=== PATIENT | female | born 1950 | race Caucasian/White ===

== ENCOUNTER → 2016-11-06 | Outpatient (CLI) | payer OTHER ==
[~2016-11-06] MED LIST: ADVIN10/60 INH; ASPEC81 PO; ATOR10TA82 PO; CALC8.5C PO; CHOL100010 PO; HYDR12.55 PO; LISI40TA PO; MULT-506 PO; NXM/40 PO; WARF-246 PO
--- NOTE | 2016-11-06 16:39 | MAMMOGRAPHY REPORT ---
BILATERAL DIGITAL SCREENING MAMMOGRAM WITH CAD: 11/06/2016 CLINICAL HISTORY: Routine screening. Patient has no complaints. TECHNIQUE: Current study was also evaluated with a Computer Aided Detection (CAD) system. Bilatera l CC and MLO views were obtained. COMPARISON: Comparison is made to exams dated: 10/16/2015 mammogram, 10/03/2014 mammogram, 08/19/2013 mammogram, 08/17/2012 mammogram, 08/14/2011 mammogram, and 08/13/2010 mammogram - [facility]. BREAST COMPOSITION: There are scattered areas of fibroglandular density in both breasts. FINDINGS: There are possible increasing calcifications within the left upper outer quadrant, for whi ch spot magnification views are recommended for further evaluation. The remainder of both breasts are stable compared to prior exams, without suspicious masses, calcifi cations, or areas of architectural distortion noted. Bilateral asymmetries/benign-appearing masses are not significantly changed. IMPRESSION: ACR BI-RADS CATEGORY 0: INCOMPLETE EVALUATION: NEED ADDITIONAL IMAGING EVALUATION Left upper outer quadrant calcifications, for which additional imaging evaluation is recommended. T he patient will be called to schedule an appointment. Approximately 10% of breast cancers are not detected with mammography. A negative mammographic repor t should not delay biopsy if a clinically suggestive mass is present. Samantha Mc M.D. /:11/06/2016 16:27:54 University Dean: Ludy Viera RT(R)(M), [facility] letter sent: Addl Imaging 0 BI-RADS Code: ACR BI-RADS Category 0: Incomplete Evaluation: Need Additional Imaging Evaluation
== END | disposition home or self-care (01) ==
LOC: C.MAMM 09:31
PROVIDERS: ATTEND Obstetrics & Gynecology
DX: Z12.31 Encounter for screening mammogram for malignant neoplasm of breast (principal); R92.1 Mammographic calcification found on diagnostic imaging of breast

== ENCOUNTER → 2016-11-18 | Outpatient (CLI) | payer OTHER ==
--- NOTE | 2016-11-21 08:07 | MAMMOGRAPHY REPORT ---
UNILATERAL LEFT DIGITAL DIAGNOSTIC MAMMOGRAM: 11/18/2016 CLINICAL HISTORY: 65-year-old woman called back from screening mammography for clustered microcalcif ications in the left upper outer quadrant. TECHNIQUE: Spot magnification left CC and ML views were obtained. COMPARISON: Comparison is made to exams dated: 11/06/2016 mammogram, 10/16/2015 mammogram, 10/03/2014 mammogram, 08/19/2013 mammogram, 05/18/2013 ultrasound, and 05/18/2013 mammogram - [facility]. BREAST COMPOSITION: There are scattered areas of fibroglandular density in the left breast. FINDINGS: There is an 11 mm cluster of pleomorphic microcalcifications in the upper outer middle on e third of the left breast. These appear increased compared to prior available mammograms and are t herefore indeterminate. Definitive characterization with a stereotactic guided biopsy is recommende d. There are mild vascular calcifications in the visualized left breast. A previously observed mas s in the left upper outer middle one third of the breast has decreased comparing to the 2008 mammogr ams. IMPRESSION: ACR BI-RADS CATEGORY 4B: INTERMEDIATE SUSPICION FOR MALIGNANCY 1. Left breast stereotactic guided biopsy is recommended for an 11 mm cluster of pleomorphic microc alcifications in the upper outer quadrant of the left breast. These results and recommendations were discussed with the patient at the time of the exam. She tent atively scheduled the biopsy prior to leaving our department. Approximately 10% of breast cancers are not detected with mammography. A negative mammographic repor t should not delay biopsy if a clinically suggestive mass is present. Amanda Batista M.D. ay/:11/18/2016 12:18:41 Feather Boner: Karissa MATTHEWS(Joyce)(Ángel), [facility] letter sent: Abnormal 4/5 BI-RADS Code: ACR BI-RADS Category 4B: Intermediate Suspicion For Malignancy
== END | disposition home or self-care (01) ==
LOC: C.MAMM 09:49
PROVIDERS: ATTEND Obstetrics & Gynecology
DX: R92.0 Mammographic microcalcification found on diagnostic imaging of breast (principal)

== ENCOUNTER → 2016-11-22 | Outpatient (CLI) | payer OTHER ==
--- NOTE | 2016-11-22 13:11 | Discharge Instructions ---
Discharge Instructions Procedure Procedure Date: November 22, 2016. Reason for visit: Left Calcifications. Discharge Discharge Date: November 22, 2016. Discharge Diagnosis: status post breast biopsy Instructions Activity Recommendations: Additional Limitations (see below) Return to School/Work: no limitations Recommended Home Diet: No Limitations Provider Instructions: ACTIVITY RECOMMENDATIONS: * No lifting, pushing, pulling or exercising the affected side for three days. RETURN TO SCHOOL/WORK: * You may return to work/school after the procedure, but do not perform any strenuous activities for 24 to 48 hours. MEDICATIONS: * Tylenol (two 325 mg) every four to six hours if needed for mild pain (if not allergic to Tylenol). DIET: * Resume previous diet. SPECIAL CARE INSTRUCTIONS: * Keep biopsy site dry for 24 hours. May shower after 24 hours, but do not soak (bathe) incision. * May remove Tegaderm (plastic patch) tomorrow AFTER showering. * Leave the steri-strips on for one week. Allow the steri-strips to fall off by themselves. If not off after one week, you may remove them. You may place a Bandaid crosswise over the strips, if desired. * Apply ice 10 minutes on and 10 minutes off as needed. * Wear a bra at bedtime to sleep more comfortably for 2-3 days. * Your referring physician should have the results after approximately 5 to 7 business days. * Call for unusual bleeding, fever, drainage, etc or if you have any questions call during normal business hours or after hours call Dr Mc, . FOLLOW UP VISIT: Follow-up with Referring Physician as scheduled. Allergies Coded Allergies: Cephalosporins (Verified Allergy, Intermediate, RED, ITCHY, 12/31/15) Ciprofloxacin (Verified Allergy, Unknown, UNKNOWN, 12/31/15) Tina Weiner Recommendations: Call your doctor if: * Temperature above 101 degrees * Pain not relieved by pain medicine ordered * There is increased drainage or redness from any incision * You have any unanswered questions or concerns. Your Doctors Instructions noted above were prepared by provider Samantha Mc. Patient Signature Section: Patient Instructions Signature Page Stephanie Atkinson Patient (or Guardian) Signature/Date: I have read and understand the instructions given to me by my caregivers. Caregiver/RN/Doctor Signature/Date: The above-named patient and/or guardian has received patient instructions on this date. + Original Patient Signature Page (only) stays with chart. Please make copy for patient.
--- NOTE | 2016-11-22 15:40 | MAMMOGRAPHY REPORT ---
STEREOTACTIC GUIDED BIOPSY LEFT BREAST: 11/22/2016 CLINICAL HISTORY: Indeterminate calcifications in the left upper outer quadrant. PATIENT CONSENT: The procedure, risks, benefits, and alternatives of stereotactic biopsy with clip p lacement were discussed with the patient, and verbal and written consent was obtained. The increase d risk of bleeding as the patient is on Coumadin was discussed. A timeout was performed immediately prior to the procedure. PROCEDURE DESCRIPTION: With stereotactic guidance, aseptic technique, and lidocaine as a local anest hetic (1% lidocaine to anesthetize the skin and 1% lidocaine with epinephrine to anesthetize the amanda per tissues), the calcifications of concern in the left upper outer quadrant were sampled multiple t imes with a 9-gauge vacuum-assisted biopsy needle (Misohoni). The path of approach was craniocau solis. The specimen radiograph demonstrates calcifications to be present in the samples. A metallic marker clip was placed at the biopsy site. This was confirmed on postprocedure mammograms. Direct pressure was applied at the biopsy site and hemostasis was readily achieved. The patient tolerated the procedure without complication. She was given wound care instructions. COMPARISON: Comparison is made to exams dated: 11/06/2016 mammogram, 11/18/2016 mammogram, 10/16/2015 m ammogram, 10/03/2014 mammogram, and 08/19/2013 mammogram - [facility]. IMPRESSION: STEREOTACTIC GUIDED BIOPSY Stereotactic biopsy of indeterminate calcifications in the left upper outer quadrant, with clip plac ement. The patient will receive pathology results from her referring provider. Samantha Mc M.D. ah/:11/22/2016 13:13:08 Attending Technologist: Karissa VICENTE)(Ángel), [facility] Copy Preparer: Anabel Stephens, [facility]
--- NOTE | 2016-11-22 15:42 | MAMMOGRAPHY REPORT ---
UNILATERAL LEFT DIGITAL DIAGNOSTIC MAMMOGRAM: 11/22/2016 CLINICAL HISTORY: Status post left breast stereotactic biopsy. TECHNIQUE: Left CC and ML views were obtained. COMPARISON: Comparison is made to exams dated: 11/18/2016 mammogram, 11/06/2016 mammogram, 10/16/2015 m ammogram, 10/03/2014 mammogram, and 08/19/2013 mammogram - [facility]. BREAST COMPOSITION: There are scattered areas of fibroglandular density in the left breast. FINDINGS: Preprocedural left CC view was obtained for biopsy planning purposes. Postprocedural lef t CC and ML views were obtained post procedure, which shows a new biopsy marker clip at the site of the biopsied calcifications in the left upper outer quadrant. A small hematoma is seen at the biops y site, which measures approximately 2 cm. IMPRESSION: POST PROCEDURE IMAGING FOR MARKER PLACEMENT New biopsy marker clip status post left breast stereotactic biopsy. Pathology results are pending. Approximately 10% of breast cancers are not detected with mammography. A negative mammographic repor t should not delay biopsy if a clinically suggestive mass is present. Samantha Mc M.D. /:11/22/2016 13:23:42 Joggle Press Operator: Anabel Stephens, [facility] BI-RADS Code: Post Procedure Imaging For Marker Placement
== END | disposition home or self-care (01) ==
LOC: C.MAMM 12:32
PROVIDERS: ATTEND Obstetrics & Gynecology
DX: R92.1 Mammographic calcification found on diagnostic imaging of breast (principal)

== ENCOUNTER → 2017-01-15 | Outpatient (CLI) | payer OTHER ==
[~2017-01-15] MED LIST changes: -ATOR10TA82 PO; +ATOR10TA88 PO
[2017-01-15 10:01] LABS: CHOLESTEROL/HDL RATIO 5.6
== END | disposition home or self-care (01) ==
LOC: C.LAB 07:36
PROVIDERS: ATTEND Internal Medicine Cardiovascular Disease
DX: E78.5 Hyperlipidemia, unspecified (principal)

== ENCOUNTER → 2017-10-13 | Outpatient (CLI) | payer OTHER ==
[~2017-10-13] MED LIST changes: +ATOR10TA82 PO; -ATOR10TA88 PO
[2017-10-13 09:35] LABS: BASO % 0.9 %; BASO ABS # 0.06 K/uL (0-0.2); EOS % 4.4 %; HEMATOCRIT 43.3 % (37-47); HEMOGLOBIN 14.3 g/dL (12.0-16.0); IG# 0.01 K/uL (0.00-0.02); LYMPH % 42.2 %; LYMPH ABS # 2.86 K/uL (1.2-3.4); MEAN CELL VOLUME 90.4 fL (80-100); MEAN CORPUSCULAR HEMOGLOBIN 29.9 pg (25-34); MEAN PLATELET VOLUME 9.3 fL (7.4-10.4); MONO % 6.8 %; MONO ABS # 0.46 K/uL (0.11-0.59); NEUT % 45.6 %; NEUT ABS # 3.09 K/uL (1.4-6.5); PLATELET COUNT 297 K/uL (130-400); RED CELL DISTRIBUTION WIDTH CV 13.6 % (11.5-14.5); WHITE BLOOD COUNT 6.78 K/uL (4.8-10.8)
[2017-10-13 10:08] LABS: ALT/SGPT 45 U/L (12-78); AST/SGOT 28 U/L (15-37); BLOOD UREA NITROGEN 12 mg/dl (7-18); CALCIUM 9.2 mg/dl (8.5-10.1); CARBON DIOXIDE 26 mmol/L (21-32); CREATININE 0.77 mg/dl (0.60-1.20); GLUCOSE 88 mg/dl (70-99); POTASSIUM 3.5 mmol/L (3.5-5.1); SODIUM 139 mmol/L (136-145)
[2017-10-13 10:20] LABS: ALKALINE PHOSPHATASE 80 U/L (45-117); CHOLESTEROL 218 mg/dl (0-200); LDL CHOLESTEROL CALCULATED 101 mg/dl; TOTAL PROTEIN 7.7 gm/dl (6.4-8.2)
== END | disposition home or self-care (01) ==
LOC: C.LAB 08:56
PROVIDERS: ATTEND Internal Medicine Geriatric Medicine
DX: I10 Essential (primary) hypertension (principal); M81.0 Age-related osteoporosis without current pathological fracture; E78.5 Hyperlipidemia, unspecified; J45.909 Unspecified asthma, uncomplicated

== ENCOUNTER → 2017-11-10 | Outpatient (CLI) | payer OTHER ==
[~2017-11-10] MED LIST changes: -ASPEC81 PO; +ASPI-320 PO
--- NOTE | 2017-11-11 07:38 | MAMMOGRAPHY REPORT ---
BILATERAL DIGITAL SCREENING MAMMOGRAM TOMOSYNTHESIS WITH CAD: 11/10/2017 CLINICAL HISTORY: Routine screening. Patient has no complaints. TECHNIQUE: Breast tomosynthesis in addition to standard 2D mammography was performed. Current study was also evaluated with a Computer Aided Detection (CAD) system. COMPARISON: Comparison is made to exams dated: 11/18/2016 mammogram, 11/06/2016 mammogram, 10/16/2015 ma mmogram, 10/03/2014 mammogram, 08/19/2013 mammogram, and 08/17/2012 mammogram - [facility]. BREAST COMPOSITION: There are scattered areas of fibroglandular density in both breasts. FINDINGS: The nodularity bilaterally. A stable dumbbell-shaped biopsy marker clip in the left upper outer quadrant. Minimal vascular calcification in the breasts. No new suspicious mass, architectura l distortion or cluster of microcalcifications is seen. IMPRESSION: ACR BI-RADS CATEGORY 1: NEGATIVE There is no mammographic evidence of malignancy. A 1 year screening mammogram is recommended. The pa tient will receive written notification of the results. Approximately 10% of breast cancers are not detected with mammography. A negative mammographic report should not delay biopsy if a clinically suggestive mass is present. Amanda Batista M.D. ay/:11/10/2017 16:07:41 Machine I Engraver: Ludy MATTHEWS(Joyce)(M), [facility] letter sent: Normal 1/2 BI-RADS Code: ACR BI-RADS Category 1: Negative
== END | disposition home or self-care (01) ==
LOC: C.MAMM 08:39
PROVIDERS: ATTEND Obstetrics & Gynecology
DX: Z12.31 Encounter for screening mammogram for malignant neoplasm of breast (principal)

== ENCOUNTER 2021-02-18 19:11 | Observation (INO) ==
[2021-02-18] MEDS ORDERED: SODIUM CHLORIDE 0.9% 500 ML IV STA (19:25)
--- NOTE | 2021-02-18 19:31 | Emergency Department Note ---
History of Present Illness General Chief complaint: Cardiac Assessment Stated complaint: AFIB Time Seen by Provider: 02/18/21 19:20 Source: patient History of Present Illness Provider complaint: Chest pain Onset (ago): hour(s) Location: chest Radiation: extremity (Left shoulder) Severity: mild Maximum Pain Intensity: 3 Quality: + other (Tightness) Relieved By: + none Associated symptoms: + fever/chills (T-max 100.2) and + headaches (Now resolved); no cough, no nausea/vomiting, no rash or no shortness of breath This is a 70-year-old female with a history of atrial fibrillation presenting with chest tightness. The patient states it started sometime this morning. She describes a tightness in her chest with radiation to her left shoulder. She denies any associated shortness of breath. No modifying factors. She rates it a 3 out of 10 in severity. She did notice that her heart rate was very high sometime this afternoon. She is on Eliquis for atrial fibrillation. She states that she has been sick for approximately 5 days. She initially started having a headache and low-grade temperature with a T-max of 100.2. She no longer has a headache and denies any head injury or fall. She denies any cough or cold symptoms, abdominal pain, vomiting, diarrhea or urinary symptoms. She has had her Covid vaccination as did her . She states that she went to [facility] urgent care and they did a rapid Covid test which was negative. She does state that her chest tightness is now resolved. Home Medications Medication Instructions Recorded Confirmed Type multivit-iron 18 mg-folic acid 400 1 tab PO DAILY 01/18/19 02/18/21 History mcg-calcium 500 mg-minerals tablet (Women's One Daily) apixaban 5 mg tablet (Eliquis) 5 mg PO BID #180 tab 03/13/20 02/18/21 Rx fluticasone propionate 100 See Rx Instructions .ROUTE 05/10/20 02/18/21 Rx mcg/actuation blister powder for .COMPLEX #60 blister inhalation (Flovent Diskus) lisinopril 40 mg tablet 20 mg PO DAILY #45 tab 08/09/20 02/18/21 Rx omeprazole 40 mg capsule,delayed 40 mg PO DAILY 10/09/20 02/18/21 History release albuterol sulfate 90 mcg/actuation 2 puff INH QID PRN g 12/12/20 02/18/21 Histo ry aerosol inhaler (Ventolin HFA) hydrochlorothiazide 12.5 mg tablet 12.5 mg PO QAM #90 tab 12/12/20 02/18/21 Rx rosuvastatin 5 mg tablet (Crestor) 5 mg PO DAILY #90 tab 12/12/20 02/18/21 Rx calcium carbonate 600 mg (1,500 1 tab PO DAILY 02/18/21 02/18/21 History mg)-vitamin D3 400 unit tablet (Calcium 600 + D(3)) Allergies Allergy/AdvReac Type Severity Reaction Status Date / Time Cephalosporins Allergy Intermediate RED, ITCHY Verified 02/18/21 20:05 ciprofloxacin Allergy Unknown UNKNOWN Verified 02/18/21 20:05 Past Med/Surg History Medical History (Updated 02/18/21 @ 21:38 by Eze Still MD) Allergic rhinitis Asthma Atrial fibrillation 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 08/2011. with History of colonoscopy (2018) History of ear surgery History of esophagogastroduodenoscopy (EGD) (2014) History of surgery on wrist History of tubal ligation S/P T&A (status post tonsillectomy and adenoidectomy) Family History Mother Bladder cancer Breast cancer Dementia Hypertension Stroke Sister Breast cancer Father Coronary heart disease Heart disease Hypertension Myocardial infarction Grandfather (Maternal) Myocardial infarction Denies family history of Ovarian cancer Prostate cancer Diabetes Lung cancer Colorectal cancer Social History Smoking Status: Never smoker Second Hand Exposure: No; Hx Alcohol Use: Yes Alcohol type: beer and wine Alcohol Intake Frequency: 4 or More x per/Week Hx Substance Use: No Preferred Language: [place] Communication Ability: Effective Visual Impairment: No Limitations Hearing Ability: 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 and A total of 10 systems reviewed and were otherwise negative Physical Exam Vital Signs Vital Signs - 24 hr 02/18/21 19:16 02/18/21 19:47 02/18/21 21:11 Temperature 36.9 C Temperature Source Oral Pulse Rate 114 H Pulse Rate [Right Brachial] 103 H Respiratory Rate 18 16 Respiratory Effort / Characteristics Non-Labored Respiratory Depth Normal Blood Pressure 144/80 H Blood Pressure [Right Arm] 152/87 H 131/82 Blood Pressure Mean 101 Blood Pressure Mean [Right Arm] 108 98 Pulse Oximetry 98 96 Oxygen Delivery Method Room Air Sepsis Recent Fever Within 48 Hours No Sepsis New/Unexplained Change in Mental Status No Sepsis Action Taken by Nursing No Action Required Constitutional: Vital signs reviewed. Eyes: Pupils are equal round reactive to light. Conjunctiva are noninjected. ENT: Pharynx is clear without erythema or exudate. Mucous membranes are moist. Neck supple without meningeal signs. Respiratory: Clear to auscultation bilaterally. Breath sounds are equal bilaterally. Cardiovascular: Tachycardic. Heart rate 106. GI: Soft, nondistended and nontender. Bowel sounds are present. Musculoskeletal: No peripheral edema. No lower extremity tenderness. Integumentary: No cyanosis. or jaundice. Neurological: The patient is awake and alert. No focal deficits. Psychiatric: Normal affect. Not anxious appearing. Course Administered Medications Discontinued Medications Sodium Chloride (Nss) 500 mls @ 999 mls/hr IV .Q31M STA Stop: 02/18/21 19:55 Last Infusion: 02/18/21 20:36 Dose: 0 mls/hr Documented by: [id number] Admin: 02/18/21 19:43 Dose: 999 mls/hr Documented by: [id number] Medical Decision Making Differential Diagnosis A. fib with RVR, unstable angina, GA, pneumonia, Lyme disease, UTI, COVID-19 Medical Records Attestation: I reviewed the patient's medical records. I did perform a limited focused review of portions of the patient's old chart on the electronic medical record. The patient was seen by her January 12 for a UTI and treated with Bactrim. Home Medications Current Medication List: was personally reviewed by me Laboratory Data Attestation: I reviewed the patient's lab results. Result diagrams: 02/18/21 19:40 02/18/21 19:40 Lab Results 02/18/21 02/18/21 02/18/21 Range/Units 19:40 19:40 19:40 WBC 4.80 (4.8-10.8) K/uL RBC 4.89 (4.2-5.4) M/uL Hgb 14.8 (12.0-16.0) g/dL Hct 44.3 (37-47) % MCV 90.6 (80-100) fL MCH 30.3 (25-34) pg MCHC 33.4 (32-36) g/dL RDW Std Deviation 46.2 (36.4-46.3) fL RDW Coeff of Mario 14.0 (11.5-14.5) % Plt Count 177 (130-400) K/uL MPV 9.5 (7.4-10.4) fL Immature Gran % (Auto) 0.4 % Neut % (Auto) 55.0 % Lymph % (Auto) 31.0 % [place]ancock % (Auto) 11.0 % Eos % (Auto) 1.3 % Baso % (Auto) 1.3 % Neut # (Auto) 2.64 (1.4-6.5) K/uL Lymph # (Auto) 1.49 (1.2-3.4) K/uL [place] # (Auto) 0.53 (0.11-0.59) K/uL Eos # (Auto) 0.06 (0-0.5) K/uL Baso # (Auto) 0.06 (0-0.2) K/uL Immature Gran # (Auto) 0.02 (0.00-0.02) K/uL Sodium 137 (136-145) mmol/L Potassium 3.3 L (3.5-5.1) mmol/L Chloride 103 (98-107) mmol/L Carbon Dioxide 27 (21-32) mmol/L Anion Gap 7.0 (3-11) BUN 12 (7-18) mg/dl Creatinine 0.86 (0.6-1.2) mg/dl Est Cr Clr Drug Dosing 57.5 ml/min Est GFR ( Amer) 78.2 ml/min Est GFR (Non-Af Amer) 67.5 ml/min BUN/Creatinine Ratio 14.1 (10-20) Glucose 113 H (70-99) mg/dl Calcium 9.4 (8.5-10.1) mg/dl Magnesium 2.1 (1.8-2.4) mg/dl Total Bilirubin 0.5 (0.2-1) mg/dl AST 85 H (15-37) U/L ALT 89 H (12-78) U/L Alkaline Phosphatase 111 (45-117) U/L Troponin I < 0.015 (0-0.045) ng/ml Total Protein 8.1 (6.4-8.2) gm/dl Albumin 4.1 (3.4-5.0) gm/dl Globulin 4.0 (2.5-4.0) gm/dl Albumin/Globulin Ratio 1.0 (0.9-2) Urine Color Urine Appearance (Clear) Urine pH (4.5-7.5) Ur Specific [place] (1.000-1.030) Urine Protein (Negative) Urine Glucose (UA) (Negative) Urine Ketones (Negative) Urine Blood (Negative) Urine Nitrite (Negative) Urine Bilirubin (Negative) Urine Urobilinogen (Negative) Ur Leukocyte Esterase (Negative) Urine WBC (Auto) (0-5) /hpf Urine RBC (Auto) (0-4) /hpf U Hyaline Cast (Auto) (0-5) /lpf U Epithel Cells (Auto) (0-5) /lpf Urine Bacteria (Auto) (Negative) Anaplasma Smear See Comment Lyme Disease IgG Ab Negative (Negative) Lyme Disease IgM Ab Negative (Negative) COVID-19 Eval Order SARS-CoV-2 (PCR) (Negative) 02/18/21 02/18/21 02/18/21 Range/Units 19:41 19:41 21:10 WBC (4.8-10.8) K/uL RBC (4.2-5.4) M/uL Hgb (12.0-16.0) g/dL Hct (37-47) % MCV (80-100) fL MCH (25-34) pg MCHC (32-36) g/dL RDW Std Deviation (36.4-46.3) fL RDW Coeff of Mario (11.5-14.5) % Plt Count (130-400) K/uL MPV (7.4-10.4) fL Immature Gran % (Auto) % Neut % (Auto) % Lymph % (Auto) % Hancock % (Auto) % Eos % (Auto) % Baso % (Auto) % Neut # (Auto) (1.4-6.5) K/uL Lymph # (Auto) (1.2-3.4) K/uL [place] # (Auto) (0.11-0.59) K/uL Eos # (Auto) (0-0.5) K/uL Baso # (Auto) (0-0.2) K/uL Immature Gran # (Auto) (0.00-0.02) K/uL Sodium (136-145) mmol/L Potassium (3.5-5.1) mmol/L Chloride (98-107) mmol/L Carbon Dioxide (21-32) mmol/L Anion Gap (3-11) BUN (7-18) mg/dl Creatinine (0.6-1.2) mg/dl Est Cr Clr Drug Dosing ml/min Est GFR ( Amer) ml/min Est GFR (Non-Af Amer) ml/min BUN/Creatinine Ratio (10-20) Glucose (70-99) mg/dl Calcium (8.5-10.1) mg/dl Magnesium (1.8-2.4) mg/dl Total Bilirubin (0.2-1) mg/dl AST (15-37) U/L ALT (12-78) U/L Alkaline Phosphatase (45-117) U/L Troponin I (0-0.045) ng/ml Total Protein (6.4-8.2) gm/dl Albumin (3.4-5.0) gm/dl Globulin (2.5-4.0) gm/dl Albumin/Globulin Ratio (0.9-2) Urine Color Yellow Urine Appearance Clear (Clear) Urine pH 6.5 (4.5-7.5) Ur Specific Reliance 1.006 (1.000-1.030) Urine Protein Negative (Negative) Urine Glucose (UA) Negative (Negative) Urine Ketones Trace H (Negative) Urine Blood Trace H (Negative) Urine Nitrite Negative (Negative) Urine Bilirubin Negative (Negative) Urine Urobilinogen Negative (Negative) Ur Leukocyte Esterase Trace H (Negative) Urine WBC (Auto) 1-5 (0-5) /hpf Urine RBC (Auto) 0-4 (0-4) /hpf U Hyaline Cast (Auto) 0 (0-5) /lpf U Epithel Cells (Auto) 0-5 (0-5) /lpf Urine Bacteria (Auto) Negative (Negative) Anaplasma Smear Lyme Disease IgG Ab (Negative) Lyme Disease IgM Ab (Negative) COVID-19 Eval Order Covid19 at [facility] SARS-CoV-2 (PCR) NEGATIVE (Negative) Imaging Data Attestation: I personally reviewed and interpreted this imaging study as follows: My Impression: Chest x-ray per my interpretation shows no acute cardiopulmonary process. ECG Data Attestation: I personally reviewed and interpreted this ECG as follows: Indication: + chest pain and + tachycardia Rate (beats per minute): 106 Rhythm: + sinus tachycardia ECG [place]: + Normal ECG ST segments: no ST elevation ECG Findings: no PVCs MDM Narrative I did evaluate the patient as noted above. The patient is presenting with flulike symptoms for the past 5 days. Starting this morning she started having chest discomfort which she describes as a tightness. She then developed tachycardia later in the afternoon. Currently her chest tightness is resolved. IV access was established. I did treat her with normal saline IV. I did place an order for continuous cardiac monitoring. The monitor showed sinus tachycardia with a rate of 106 bpm. This resolved to normal sinus rhythm with a rate of 85. I did order and personally review the patient's 12-lead EKG as described above. She has sinus tachycardia. She has no acute ischemic changes. I did order and personally reviewed the images of the patient's chest x-ray as described above. There is no evidence of pneumonia. I did order blood cultures. I did order and review the patient's blood work as noted in the electronic medical record. Her white blood cell count is not elevated. She is not anemic. Platelet count and electrolytes are unremarkable other than a potassium of 3.3. LFTs demonstrate a slight elevation of her transaminases. Anaplasmosis smear is negative and Lyme testing is negative. I did order DNA testing for anaplasmosis. She does state that she had a tick on her recently. Covid testing is negative as well. I did order a urine analysis. She has trace leukocyte esterase but no other signs of infection. She denies any urinary symptoms. The cause of her fever is unclear at this time. I did recommend we hospitalize her for further evaluation and repeat cardiac biomarkers. She is not having chest pain at this time. She is no longer tachycardic. The case was discussed with the casework specialist and the hospitalist was informed. Impression & Plan Acute chest pain, Tachycardia, Acute febrile illness Discharge Plan Visit Data Chief Complaint: Cardiac Assessment Stated Complaint: AFIB ED Provider: Eze Still Discharge Problem: Acute chest pain, Tachycardia, Acute febrile illness Patient Disposition: Being Evaluated by Hospitalist Forms Stand Alone Forms: My [facility] [address] Prescriptions Prescriptions: No Action Eliquis 5 mg tablet 5 mg PO BID Qty: 180 RF: 3 fluticasone propionate [Flovent Diskus] 100 mcg/actuation blister with device See Rx Instructions .ROUTE .COMPLEX Qty: 60 RF: 11 lisinopril 40 mg tablet 20 mg PO DAILY Qty: 45 RF: 3 albuterol sulfate [Ventolin HFA] 90 mcg/actuation HFA aerosol inhaler 2 puff INH QID PRN (Reason: shortness of breath or wheezing) RF: 0 rosuvastatin [Crestor] 5 mg tablet 5 mg PO DAILY Qty: 90 RF: 3 hydrochlorothiazide 12.5 mg tablet 12.5 mg PO QAM Qty: 90 RF: 3 omeprazole 40 mg capsule,delayed release(DR/EC) 40 mg PO DAILY RF: 0 Women's One Daily 18 mg iron-400 mcg-500 mg Ca Tablet 1 tab PO DAILY RF: 0 calcium carbonate-vitamin D3 [Calcium 600 + D(3)] 600 mg(1,500mg) -400 unit Tablet 1 tab PO DAILY RF: 0 Referrals Referrals: José Peres DO [Primary Care Provider] -
[2021-02-18 19:50] LABS: Basophils # (auto) 0.06 K/uL (0-0.2); Basophils % (auto) 1.3 %; Eosinophils # (auto) 0.06 K/uL (0-0.5); Eosinophils % (auto) 1.3 %; Hematocrit (blood only) 44.3 % (37-47); Hemoglobin 14.8 g/dL (12.0-16.0); Immature Granulocytes # (auto) 0.02 K/uL (0.00-0.02); Immature Granulocytes % (auto) 0.4 %; Lymphocytes # (auto) 1.49 K/uL (1.2-3.4); Mean Corpuscular Hemoglobin 30.3 pg (25-34); Mean Corpuscular Hgb Conc 33.4 g/dL (32-36); Mean Corpuscular Volume 90.6 fL (80-100); Mean Platelet Volume 9.5 fL (7.4-10.4); Monocytes # (auto) 0.53 K/uL (0.11-0.59); Neutrophils # (auto) 2.64 K/uL (1.4-6.5); Platelet Count 177 K/uL (130-400); RDW Standard Deviation 46.2 fL (36.4-46.3); Red Blood Count 4.89 M/uL (4.2-5.4)
[2021-02-18 20:11] LABS: Alanine Aminotransferase 89 U/L (12-78); Albumin Level 4.1 gm/dl (3.4-5.0); Aspartate Aminotransferase 85 U/L (15-37); BUN Creatinine Ratio 14.1 (10-20); Blood Urea Nitrogen 12 mg/dl (7-18); Calcium 9.4 mg/dl (8.5-10.1); Carbon Dioxide 27 mmol/L (21-32); Chloride 103 mmol/L (98-107); Creatinine Clr Calc Pharmacy 57.5 ml/min; Est GFR (African American) 78.2 ml/min; Est GFR (Non-African American) 67.5 ml/min; Glucose 113 mg/dl (70-99); Magnesium 2.1 mg/dl (1.8-2.4); Potassium 3.3 mmol/L (3.5-5.1); Sodium 137 mmol/L (136-145)
[2021-02-18 20:15] LABS: Alkaline Phosphatase 111 U/L (45-117); Bilirubin,Total 0.5 mg/dl (0.2-1); Total Protein 8.1 gm/dl (6.4-8.2); Troponin I < 0.015 ng/ml (0-0.045)
[2021-02-18 20:37] LABS: Lyme Ab IgG w/WB Rflx Negative (Negative); Lyme Ab IgM w/WB Rflx Negative (Negative)
[2021-02-18 21:28] LABS: Appearance Urine Clear (Clear); Bacteria Urine Automated Negative (Negative); Bilirubin Urine Negative (Negative); Blood Urine Trace (Negative); Cast Urine Automated 0 /lpf (0-5); Color Urine Yellow; Epithelial Cell Urine Auto 0-5 /lpf (0-5); Glucose Urine UA Negative (Negative); Ketones Urine Trace (Negative); Leukocyte Esterase Urine Trace (Negative); Nitrite Urine Negative (Negative); Protein Urine Negative (Negative); RBC Urine Automated 0-4 /hpf (0-4); Specific Gravity Urine 1.006 (1.000-1.030); Urobilinogen Urine Negative (Negative); pH Urine 6.5 (4.5-7.5)
--- NOTE | 2021-02-18 23:00 | History & Physical Report ---
Date of Service February 18, 2021 Assessment & Plan (1) Acute chest pain: Plan: Acute upper sternal chest discomfort/tightness- The patient will be admitted to telemetry for serial cardiac enzymes, serial EKG's, cardiac rhythm monitoring and a 2-D echocardiogram with Dopplers. Occurred after 5 days of generalized illness Differential includes asthma, cardiac, reflux, others For now, hold apixaban, HCTZ and lisinopril (2) Acute febrile illness: Plan: Temperature recorded by patient was 100.2 F- No suggestion of infection of the chest x-ray or urine. Patient does have a transaminitis, for which a CT scan of the abdomen pelvis was performed which only showed fatty liver We will order Monospot and CMV titers Patient did have negative anaplasmosis smear, Lyme antibody and COVID-19 antibody testing due to history of tick bite in September (3) Transaminitis: Plan: Fatty liver seen on CT Patient has had a negative EGD and colonoscopy previously by Dr. Cazares a few years ago We will order HIDA scan to further rule out gallbladder disease (4) Hypertension: Plan: See above (5) Atrial fibrillation: Plan: Patient did have a an episode where she reports that her heart rate was not able be recorded by her apple watch. Unclear if this was an episode of paroxysmal A. fib. Follow on telemetry overnight (6) PFO (patent foramen ovale): Plan: See above (7) Hyperlipidemia: Plan: Hold rosuvastatin until resuming oral (8) GERD (gastroesophageal reflux disease): Plan: Hold omeprazole Famotidine 20 mg IV every 12 hours (9) Asthma: Plan: Have DuoNebs available every 2 hours as needed (10) Hypokalemia: Plan: Secondary to HCTZ. Hold HCTZ Patient NSS + KCl 20 mEq 100 mils per hour Repeat laboratories in a.m. History of Present Illness Chief Complaint: The patient presents to the emergency department with complaint of 5 days of generalized fatigue, headache and temperature maximum of 100.2 F, and the development today of tightness in her chest in the upper sternal area and a heart rate that was too rapid to record on her apple watch. Primary Care Provider: José Peres DO The patient is a 70-year-old female with a past medical history including hypertension, atrial fibrillation, PFO, history of stroke, hyperlipidemia, GERD, facial pain, allergic rhinitis, asthma, and osteoporosis. The patient present with symptoms as noted above. The patient does report a tick bite on her neck area around September of this year, for which she received 2 to 3 days of oral antibiotics. Work-up in the emergency department included the following significant laboratories: Potassium 3.3, AST 85, ALT 89. Patient was negative for anaplasmosis smear, Lyme antibody testing and COVID-19 test. Chest x-ray was negative. CT scan of abdomen pelvis showed fatty liver. Allergies Allergy/AdvReac Type Severity Reaction Status Date / Time Cephalosporins Allergy Intermediate RED, ITCHY Verified 02/18/21 20:05 ciprofloxacin Allergy Unknown UNKNOWN Verified 02/18/21 20:05 Home Medications Medication Instructions Recorded Confirmed Type multivit-iron 18 mg-folic acid 400 1 tab PO DAILY 01/18/19 02/18/21 History mcg-calcium 500 mg-minerals tablet (Women's One Daily) apixaban 5 mg tablet (Eliquis) 5 mg PO BID #180 tab 03/13/20 02/18/21 Rx fluticasone propionate 100 See Rx Instructions .ROUTE 05/10/20 02/18/21 Rx mcg/actuation blister powder for .COMPLEX #60 blister inhalation (Flovent Diskus) lisinopril 40 mg tablet 20 mg PO DAILY #45 tab 08/09/20 02/18/21 Rx omeprazole 40 mg capsule,delayed 40 mg PO DAILY 10/09/20 02/18/21 History release albuterol sulfate 90 mcg/actuation 2 puff INH QID PRN g 12/12/20 02/18/21 History aerosol inhaler (Ventolin HFA) hydrochlorothiazide 12.5 mg tablet 12.5 mg PO QAM #90 tab 12/12/20 02/18/21 Rx rosuvastatin 5 mg tablet (Crestor) 5 mg PO DAILY #90 tab 12/12/20 02/18/21 Rx calcium carbonate 600 mg (1,500 1 tab PO DAILY 02/18/21 02/18/21 History mg)-vitamin D3 400 unit tablet (Calcium 600 + D(3)) Past Med/Surg History Medical History (Updated 02/19/21 @ 02:24 by John Jacob MD) Allergic rhinitis Asthma Atrial fibrillation 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 08/2011. with History of colonoscopy (2018) History of ear surgery History of esophagogastroduodenoscopy (EGD) (2014) History of surgery on wrist History of tubal ligation S/P T&A (status post tonsillectomy and adenoidectomy) Family History Mother Bladder cancer Breast cancer Dementia Hypertension Stroke Sister Breast cancer Father Coronary heart disease Heart disease Hypertension Myocardial infarction Grandfather (Maternal) Myocardial infarction Denies family history of Ovarian cancer Prostate cancer Diabetes Lung cancer Colorectal cancer Social History Smoking Status: Never smoker Second Hand Exposure: No; Hx Alcohol Use: Yes Alcohol type: beer and wine Alcohol Intake Frequency: 4 or More x per/Week Hx Substance Use: No Preferred Language: Portuguese Communication Ability: Effective Visual Impairment: No Limitations Hearing Ability: Use of Hearing Aid [employer] Attendant Required: No Beliefs That Will Affect Care: None marital status: Current Living Situation: Spouse current occupational status: retired Feels Safe at Home: Yes Childhood Exposure to Second-Hand Smoke: Yes caffeine: Yes Dental Care, Regularly: Yes Physical Activity Frequency: 3-4 Times per Week Seatbelt Use: always Sunscreen Use: Yes Assistive Devices: Glasses Review of Systems Review of Systems: The patient denies shortness of breath, dyspnea on exertion, cough, lower extremity swelling, sore throat, chills, sweats, nausea, vomiting, diarrhea , constipation, abdominal pain, pelvic pain, blood in urine or stool, dysuria, urinary frequency or urgency, memory loss, loss of consciousness, rash, abnormal bruising or bleeding, imbalance, focal weakness, numbness or tingling in arms or legs, generalized arthralgias or myalgias, back or neck pain, or night sweats. The review of systems is otherwise negative other than for that already noted above, and at least 10 systems have been reviewed. Physical Exam 2 Physical Exam: The patient is awake, alert and oriented 3, well developed and well nourished, normocephalic and atraumatic, lying in bed and in no acute distr ess. HEENT--PERRL, EOMI, mucous membranes and oropharynx dry. Neck--supple. No JVD. No bruits. Thyroid normal, trachea midline, no adenopathy. Heart--normal S1 and S2. No murmurs, rubs or gallops. Lungs--clear bilaterally, no respiratory distress, no accessory muscle use. Abdomen--normal bowel sounds and soft. Nontender. Nondistended, no hernias or masses, no organomegaly. Extremities--no cyanosis or clubbing. No edema. Dermatologic--normal skin turgor, normal color, no abnormal lymph nodes, no rash. Neurologic--cranial nerves II through XII grossly intact. Rheumatologic--normal range of motion. Psychiatric--normal affect. Results & Data Results & Data ([facility]) Vital Signs (Past 12 Hours) Vital Signs Temp Pulse Pulse Resp BP BP Pulse Ox 02/18/21 21:11 131/82 02/18/21 19:47 103 H 16 152/87 H 96 02/18/21 19:16 98.4 F 114 H 18 144/80 H 98 Laboratory Results Laboratory Results WBC 4.80 K/uL (4.8-10.8) 02/18/21 19:40 RBC 4.89 M/uL (4.2-5.4) 02/18/21 19:40 Hgb 14.8 g/dL (12.0-16.0) 02/18/21 19:40 Hct 44.3 % (37-47) 02/18/21 19:40 MCV 90.6 fL (80-100) 02/18/21 19:40 MCH 30.3 pg (25-34) 02/18/21 19:40 MCHC 33.4 g/dL (32-36) 02/18/21 19:40 RDW Std Deviation 46.2 fL (36.4-46.3) 02/18/21 19:40 RDW Coeff of Mario 14.0 % (11.5-14.5) 02/18/21 19:40 Plt Count 177 K/uL (130-400) 02/18/21 19:40 MPV 9.5 fL (7.4-10.4) 02/18/21 19:40 Immature Gran % (Auto) 0.4 % 02/18/21 19:40 Neut % (Auto) 55.0 % 02/18/21 19:40 Lymph % (Auto) 31.0 % 02/18/21 19:40 Brule % (Auto) 11.0 % 02/18/21 19:40 Eos % (Auto) 1.3 % 02/18/21 19:40 Baso % (Auto) 1.3 % 02/18/21 19:40 Neut # (Auto) 2.64 K/uL (1.4-6.5) 02/18/21 19:40 Lymph # (Auto) 1.49 K/uL (1.2-3.4) 02/18/21 19:40 Brule # (Auto) 0.53 K/uL (0.11-0.59) 02/18/21 19:40 Eos # (Auto) 0.06 K/uL (0-0.5) 02/18/21 19:40 Baso # (Auto) 0.06 K/uL (0-0.2) 02/18/21 19:40 Immature Gran # (Auto) 0.02 K/uL (0.00-0.02) 02/18/21 19:40 Sodium 137 mmol/L (136-145) 02/18/21 19:40 Potassium 3.3 mmol/L (3.5-5.1) L 02/18/21 19:40 Chloride 103 mmol/L (98-107) 02/18/21 19:40 Carbon Dioxide 27 mmol/L (21-32) 02/18/21 19:40 Anion Gap 7.0 (3-11) 02/18/21 19:40 BUN 12 mg/dl (7-18) 02/18/21 19:40 Creatinine 0.86 mg/dl (0.6-1.2) 02/18/21 19:40 Est Cr Clr Drug Dosing 57.5 ml/min 02/18/21 19:40 Est GFR ( Amer) 78.2 ml/min 02/18/21 19:40 Est GFR (Non-Af Amer) 67.5 ml/min 02/18/21 19:40 BUN/Creatinine Ratio 14.1 (10-20) 02/18/21 19:40 Glucose 113 mg/dl (70-99) H 02/18/21 19:40 Calcium 9.4 mg/dl (8.5-10.1) 02/18/21 19:40 Magnesium 2.1 mg/dl (1.8-2.4) 02/18/21 19:40 Total Bilirubin 0.5 mg/dl (0.2-1) 02/18/21 19:40 AST 85 U/L (15-37) H 02/18/21 19:40 ALT 89 U/L (12-78) H 02/18/21 19:40 Alkaline Phosphatase 111 U/L (45-117) 02/18/21 19:40 Troponin I < 0.015 ng/ml (0-0.045) 02/18/21 19:40 Total Protein 8.1 gm/dl (6.4-8.2) 02/18/21 19:40 Albumin 4.1 gm/dl (3.4-5.0) 02/18/21 19:40 Globulin 4.0 gm/dl (2.5-4.0) 02/18/21 19:40 Albumin/Globulin Ratio 1.0 (0.9-2) 02/18/21 19:40 Urine Color Yellow 02/18/21 21:10 Urine Appearance Clear (Clear) 02/18/21 21:10 Urine pH 6.5 (4.5-7.5) 02/18/21 21:10 Ur Specific [place] 1.006 (1.000-1.030) 02/18/21 21:10 Urine Protein Negative (Negative) 02/18/21 21:10 Urine Glucose (UA) Negative (Negative) 02/18/21 21:10 Urine Ketones Trace (Negative) H 02/18/21 21:10 Urine Blood Trace (Negative) H 02/18/21 21:10 Urine Nitrite Negative (Negative) 02/18/21 21:10 Urine Bilirubin Negative (Negative) 02/18/21 21:10 Urine Urobilinogen Negative (Negative) 02/18/21 21:10 Ur Leukocyte Esterase Trace (Negative) H 02/18/21 21:10 Urine WBC (Auto) 1-5 /hpf (0-5) 02/18/21 21:10 Urine RBC (Auto) 0-4 /hpf (0-4) 02/18/21 21:10 U Hyaline Cast (Auto) 0 /lpf (0-5) 02/18/21 21:10 U Epithel Cells (Auto) 0-5 /lpf (0-5) 02/18/21 21:10 Urine Bacteria (Auto) Negative (Negative) 02/18/21 21:10 Anaplasma Smear See Comment 02/18/21 19:40 Lyme Disease IgG Ab Negative (Negative) 02/18/21 19:40 Lyme Disease IgM Ab Negative (Negative) 02/18/21 19:40 COVID-19 Eval Order Covid19 at [facility] 02/18/21 19:41 SARS-CoV-2 (PCR) NEGATIVE (Negative) 02/18/21 19:41 Diagnostic Findings [facility] Patient: LYLY SEPULVEDA (Female) : 46 Status: ER Date: 02/18/21 22:45 Room #: History: abnormal LFT's, temperature Slices: 607 Priors: Tech: Aden Murphy @ [phone] Exams: CT ABDOMEN & PELVIS Without Contrast Contrast: Accession Numbers: [id number] Referring Physician: REFERRED SELF Preliminary Findings Only See Final Report For Complete Findings CT ABDOMEN & PELVIS Without Contrast: Fatty liver. No mass, ascites or definite acute abnormality. Chronic constipation. Mild diverticulosis without diverticulitis. No SBO, free air or free fluid. Normal gallbladder, appendix and kidneys. Radiologist: Rachelle Sanchez M.D. Study ready at 22:57 and initial results transmitted at 23:59 *This report constitutes a preliminary interpretation only. Non-acute findings felt to be unrelated to the clinical presentation may not be discussed in this report. The study will be interpreted and a final report will be generated by the local Radiologist the following shift. To reach the hospital radiology department call [phone]. If a discrepancy is found between the preliminary and final interpretations of this study, please notify us via our Client Portal at [email or web address] QA Exams.You can also fax this report with a description of the discrepancy, or include the final report, to our daytime fax number [phone].If faxing, please indicate the severity of discrepancy using one of the following categories: [ ] 1 - Agree/Informational [ ] 2 - Unlikely to Affect Management [ ] 3 - Possible Eventual Change of Management [ ] 4 - Probable Immediate Change of Management For all other patient related information, please fax us at [phone]. [id number] ECG Additional Comments: DERICK LYLY ID:[id number] 18-FEB-2021 19:30:14 [facility]- EDSTAT ROUTINE RETRIEVAL Sinus tachycardia Otherwise normal ECG When compared with ECG of 01-JAN-2016 06:42, Vent. rate has increased BY 35 BPM 25mm/s 10mm/mV 150Hz 9.0.9 12SL 241 RANDA: 11 Referred by: REFERRED SELF Unconfirmed Vent. rate [address] interval 162 ms QRS duration 80 ms QT/QTc 338/448 ms P-R-T axes 50 21 31 1950 (70 yr) Female 1in 0lb Room: Loc:15 Industrial Mechanic:Supriya Alfaro Code Status & VTE Plan Code Status Full code VTE Prophylaxis Plan VTE Prophylaxis will be ordered: Yes PG Care Time/CCT Total # of Minutes Spent Total Time Spent with Patient: Total time spent is greater than 50% in coordination of care (as documented) at patient's floor/unit and/or counseling patient: Coding Level of Care Code INT OBSERVATION CARE 70M LVL 3 Diagnoses Acute febrile illness R50.9 Acute chest pain R07.9 Hypertension I10 Atrial fibrillation I48.91 PFO (patent foramen ovale) Q21.1 Hyperlipidemia E78.5 GERD (gastroesophageal reflux disease) K21.9 Asthma J45.909 Transaminitis R74.01 Hypokalemia E87.6
[2021-02-19] MEDS ORDERED: ALBUT/IPRATROP 3MG/0.5MG NEB 3 ML VIAL NEB PRN (02:32)
[2021-02-19] MEDS ORDERED: ONDANSETRON INJ 2 MG/ML 2 ML VIAL IV PRN (03:40)
[2021-02-19] MEDS ORDERED: NSS + 20MEQ KCL 20 MEQ/1,000 ML BAG IV SCH (04:00)
[2021-02-19 06:06] LABS: Basophils # (auto) 0.06 K/uL (0-0.2); Basophils % (auto) 1.3 %; Eosinophils # (auto) 0.09 K/uL (0-0.5); Eosinophils % (auto) 1.9 %; Hematocrit (blood only) 39.7 % (37-47); Hemoglobin 13.1 g/dL (12.0-16.0); Immature Granulocytes # (auto) 0.01 K/uL (0.00-0.02); Immature Granulocytes % (auto) 0.2 %; Lymphocytes # (auto) 1.75 K/uL (1.2-3.4); Lymphocytes % (auto) 37.3 %; Mean Corpuscular Hemoglobin 29.7 pg (25-34); Mean Platelet Volume 9.3 fL (7.4-10.4); Monocytes % (auto) 10.7 %; Neutrophils # (auto) 2.28 K/uL (1.4-6.5); Neutrophils % (auto) 48.6 %; Platelet Count 163 K/uL (130-400); RDW Coefficient of Variation 13.9 % (11.5-14.5); RDW Standard Deviation 46.1 fL (36.4-46.3); Red Blood Count 4.41 M/uL (4.2-5.4); White Blood Count 4.69 K/uL (4.8-10.8)
[2021-02-19 07:01] LABS: Alanine Aminotransferase 76 U/L (12-78); Albumin Level 3.5 gm/dl (3.4-5.0); Alkaline Phosphatase 90 U/L (45-117); Aspartate Aminotransferase 69 U/L (15-37); BUN Creatinine Ratio 19.5 (10-20); Bilirubin,Total 0.5 mg/dl (0.2-1); Blood Urea Nitrogen 11 mg/dl (7-18); Calcium 8.7 mg/dl (8.5-10.1); Carbon Dioxide 27 mmol/L (21-32); Chloride 106 mmol/L (98-107); Creatinine Clr Calc Pharmacy 91.6 ml/min; Est GFR (African American) 109.3 ml/min; Est GFR (Non-African American) 94.3 ml/min; Globulin 3.4 gm/dl (2.5-4.0); Glucose 92 mg/dl (70-99); Potassium 3.4 mmol/L (3.5-5.1); Sodium 138 mmol/L (136-145); Total Protein 6.9 gm/dl (6.4-8.2); Troponin I < 0.015 ng/ml (0-0.045)
--- NOTE | 2021-02-19 07:35 | XRay Report ---
XR chest 1V portable CLINICAL HISTORY: Chest pain. Evaluate for pneumonia. COMPARISON STUDY: Chest radiograph July 01, 2016. FINDINGS: Lung volumes are normal. Minimal left basilar opacity reflects atelectasis. There is no pne umothorax or pleural effusion. Cardiac size is normal. Mediastinal contours are normal. There is no e vidence for pulmonary edema. IMPRESSION: No acute cardiopulmonary findings. ACT 112: Negative or not required by law. Electronically signed by: Artie Hawley M.D. 02/19/2021 7:33 AM
--- NOTE | 2021-02-19 07:51 | Electrocardiogram Report ---
Test Reason : Blood Pressure : / mmHG Vent. Rate : 106 BPM Atrial Rate : 106 BPM P-R Int : 162 ms QRS Dur : 080 ms QT Int : 338 ms P-R-T Axes : 050 021 031 degrees QTc Int : 448 ms Sinus tachycardia Otherwise normal ECG When compared with ECG of 01-JAN-2016 06:42, Vent. rate has increased BY 35 BPM Confirmed by Remberto Strong ([id number]) on 02/19/2021 7:51:26 AM Referred By: REFERRED SELF Confirmed By:Remberto Strong
--- NOTE | 2021-02-19 08:16 | CT Scan Report ---
CT SCAN OF THE ABDOMEN AND PELVIS WITHOUT CONTRAST CLINICAL HISTORY: abnormal LFT's, temperature COMPARISON STUDY: No previous studies for comparison. TECHNIQUE: CT scan of the abdomen and pelvis was performed from the lung bases to the proximal femurs . Images are reviewed in the axial, sagittal, and coronal planes. IV contrast was not administered fo r this examination. A dose lowering technique was utilized adhering to the principles of ALARA. CT DOSE: 797.68 mGycm FINDINGS: Lower chest: Linear atelectasis or scarring in bilateral bases. Small pneumatocele is seen within the right lower lobe. Liver: The unenhanced liver is normal in size and contour . There is no intrahepatic biliary ductal d ilatation. Geographic areas of decreased attenuation of the liver parenchyma are seen. Gallbladder: Unremarkable. Spleen: Normal in size and attenuation. Pancreas: Unremarkable. Adrenal glands: Unremarkable. Kidneys: The unenhanced kidneys are normal in size without hydronephrosis. There is no contour deform ing renal mass lesion. No renal calculi are identified. Bowel: Bowel loops are nondilated. Appendix is not well seen. Minimal diverticulosis of sigmoid colon without evidence of diverticulitis. Peritoneum: There is no intraperitoneal free air or abdominal ascites. Vasculature: The abdominal aorta is normal in course and caliber. Adenopathy: None. Pelvic viscera: Urinary bladder is adequately filled with urine. The uterus is surgically absent. Sma ll bilateral fat-containing inguinal hernias are seen. Skeletal structures: Osteopenia. Minimal degenerative changes of the spine. IMPRESSION: 1. Hepatic steatosis. 2. No acute intra-abdominal process. 3. Minimal diverticulosis of sigmoid colon without evidence of diverticulitis. 4. The rest of findings as above. ACT 112: Negative or not required by law. The above report was generated using voice recognition software. It may contain grammatical, syntax o r spelling errors. Electronically signed by: Yovana Kaur DO 02/19/2021 8:15 AM
[2021-02-19] MEDS ORDERED: FAMOTIDINE 20 MG in SYRINGE 3 ML IV SCH (09:00)
[2021-02-19] MEDS ORDERED: ROSUVASTATIN CALCIUM 5 MG TAB PO SCH (09:00)
[2021-02-19] MEDS ORDERED: NON-FORMULARY MEDICATION (Multivit-Iron-Fa-Calcium-Mins [Women's One Daily] 18 mg iron-400 PO SCH (09:00)
[2021-02-19] MEDS ORDERED: CALCIUM 600MG + VIT D 400 IU TAB PO SCH (09:00)
[2021-02-19] MEDS ORDERED: PANTOprazole 40 MG TAB PO SCH (09:00)
[2021-02-19] MEDS ORDERED: SODIUM CHLORIDE 0.9% IV SCH (11:00)
[2021-02-19] MEDS ORDERED: SINCALIDE IV SCH (11:00)
--- NOTE | 2021-02-19 12:44 | Nuclear Medicine Report ---
NUCLEAR HEPATOBILIARY SCAN WITH EJECTION FRACTION IMAGING CLINICAL HISTORY: Abnormal LFTs. Febrile illness.. COMPARISON STUDY: None. Correlation is made with CT of abdomen and pelvis performed on February 18, 2021 . TECHNIQUE: Dynamic images of the liver and anterior abdomen were obtained every 5 minutes for a total of 60 minutes following the IV administration of technetium 99m Choletec. sincalide was then inject ed with additional images acquired every 5 minutes for 45 minutes to calculate the gallbladder ejecti on fraction. FINDINGS: The hepatobiliary scan shows prompt and homogeneous hepatic uptake. There is visualized act ivity within the intra and extrahepatic biliary tree at 11-15 minutes, and within the gallbladder at 16-20 minutes. There is normal biliary to bowel transit, with small bowel visualized by 41-45 minute s. On the sincalide imaging, the gallbladder ejection fraction was measured at 89%. IMPRESSION: 1. Unremarkable nuclear hepatobiliary scan. There is no scintigraphic evidence of cholecystitis. 2. The gallbladder ejection fraction measured 89% ACT 112: Negative or not required by law. Electronically signed by: Yovana Kaur DO 02/19/2021 12:43 PM
--- NOTE | 2021-02-19 20:51 | Discharge Summary ---
Date of Service February 19, 2021 Admission HPI Per Admitting Provider The patient is a 70-year-old female with a past medical history including hypertension, atrial fibrillation, PFO, history of stroke, hyperlipidemia, GERD, facial pain, allergic rhinitis, asthma, and osteoporosis. The patient present with symptoms as noted above. The patient does report a tick bite on her neck area around September of this year, for which she received 2 to 3 days of oral antibiotics. Work-up in the emergency department included the following significant laboratories: Potassium 3.3, AST 85, ALT 89. Patient was negative for anaplasmosis smear, Lyme antibody testing and COVID-19 test. Chest x-ray was negative. CT scan of abdomen pelvis showed fatty liver. Principal Diagnosis Bacteremia Discharge Exam Constitutional WD/WN, vitals as above Eyes EOM intact bilaterally; no conjunctival abnormality ENMT external ear and nose normal, oropharynx normal Neck trachea midline, no thyromegaly normal visual inspection Respiratory normal respiratory effort, lungs clear to auscultation no respiratory distress Cardiovascular RRR, no murmur, no edema Gastrointestinal (Abdomen) Inspection/Auscultation: abdomen normal to inspection; abdomen not distended Musculoskeletal no cyanosis or clubbing, extremities motor strength 5/5 Skin no rashes, warm and dry Neurologic moves all extremities and awake Psychiatric Orientation: alert, oriented to person and cooperative Discharge Data Allergies Allergy/AdvReac Type Severity Reaction Status Date / Time Cephalosporins Allergy Intermediate RED, ITCHY Verified 02/18/21 20:05 ciprofloxacin Allergy Unknown UNKNOWN Verified 02/18/21 20:05 Consultations 02/18/21 21:25 ED Decision to Admit Stat Ordered Studies 02/18/21 21:55 CT abd pelvis wo con Stat Hospital Course (1) Bacteremia: Called by RN after patient discharged that anaerobic bottle of blood cultures growing Gram(+) bacilli. She does have chronic ear issues. Follows with Dr. Mosley at [facility] in [place]. Left ear has been draining for some time. Will consider this source unless other source presents itself. - Discussed results with her on the phone. Will have her return to the ED to start IV abx. Will likely need further imaging of her ear and ENT consult. Consider ID consult as well depending on the results of these tests. (2) Acute chest pain: Acute upper sternal chest discomfort/tightness. The patient will be admitted to telemetry for serial cardiac enzymes, serial EKG's, cardiac rhythm monitoring. - Occurred after 5 days of generalized illness - Troponins negative; no recurrence. (3) Acute febrile illness: Temperature recorded by patient was 100.2F. - No fevers in the hospital. - No suggestion of infection of the chest x-ray or urine. - CT a/p and HIDA both normal, so gallbladder and intra-abdominal pathology felt to be ruled out. - CMV, EBV, and Anaplasmosis PCR all pending. (4) Transaminitis: Fatty liver seen on CT. HIDA normal. - Returning to baseline by discharge. (5) Hypertension: Normal BP in the hospital. (6) Atrial fibrillation: Patient did have a an episode where she reports that her heart rate was not able be recorded by her Apple watch. - No episodes while in the hospital. - Continue home meds. (7) PFO (patent foramen ovale): - No inpatient needs. (8) Hyperlipidemia: - Resumed rosuvastatin (9) GERD (gastroesophageal reflux disease): - Held omeprazole - Famotidine 20 mg IV every 12 hours (10) Asthma: No shortness of breath. - Have DuoNebs available every 2 hours as needed (11) Hypokalemia: Secondary to HCTZ. - Held HCTZ Total Time Total Time Spent Total Time Spent (In Minutes): 35 Discharge Plan Discharge Items Patient Disposition: Home - Self-Care Reason For Visit: TRANSAMINITIS, FEBRILE ILLNESS, PALPITATIONS Discharge Diagnosis: Mild liver injury, febrile illness Activity: Resume your previous activity Non-emergency contact: Primary Care Provider Call non-emergency contact if: your symptoms worsen and your temperature is above 101 Follow-up/Referrals: José Peres DO [Primary Care Provider] - Diet: Regular Addtl Attending Provider Instructions: Waldemar China, You were admitted to the hospital with a fever at home, some chest tightness, and slight elevations in your liver enzymes. We looked for a variety of infectious causes of your symptoms and have so far not found any. Your images of your chest and abdomen and pelvis all look good, and we don't see any signs of infection in the lungs or abdomen. We tested your gallbladder with a test called a HIDA scan which makes sure your gallbladder is jeanne appropriately, and this test was normal. We also tested you for Covid which was negative, along with Lyme (negative). We also tested you for a tick-born disease called anaplasmosis. Our initial test was negative, but a more sensitive test is still pending. However, because you are feeling better, we will defer treating for that at the present time unless the other test comes back positive. We also tested for two viruses that can sometimes affect the liver called CMV and EBV. Both of these are self-resolving much of the time and don't require specific treatment. For infectious issues, we also took samples of your blood which we will watch for 5 days to be sure that you don't have any bacteria in your bloodstream. I think this is very unlikely, but we will continue to watch the samples. We also tested your heart enzymes (called a troponin) which was normal and indicates there was no damage or stress on your heart. Since all your testing looks good and you are feeling better, we will discharge you from the hospital to recover at home. Please see Dr. Peres in 1-2 weeks to follow up on any test results that are pending. Pending Studies at Discharge: Yes Studies:: See above Stand-Alone Forms: My [facility] [employer] Sweet Teas, Smoking Cessation Medications and DC Order Prescriptions: Continued Eliquis 5 mg tablet 5 mg PO BID Qty: 180 RF: 3 fluticasone propionate [Flovent Diskus] 100 mcg/actuation blister with device See Rx Instructions .ROUTE .COMPLEX Qty: 60 RF: 11 lisinopril 40 mg tablet 20 mg PO DAILY Qty: 45 RF: 3 albuterol sulfate [Ventolin HFA] 90 mcg/actuation HFA aerosol inhaler 2 puff INH QID PRN (Reason: shortness of breath or wheezing) RF: 0 rosuvastatin [Crestor] 5 mg tablet 5 mg PO DAILY Qty: 90 RF: 3 hydrochlorothiazide 12.5 mg tablet 12.5 mg PO QAM Qty: 90 RF: 3 omeprazole 40 mg capsule,delayed release(DR/EC) 40 mg PO DAILY RF: 0 Women's One Daily 18 mg iron-400 mcg-500 mg Ca Tablet 1 tab PO DAILY RF: 0 calcium carbonate-vitamin D3 [Calcium 600 + D(3)] 600 mg(1,500mg) -400 unit Tablet 1 tab PO DAILY RF: 0 Discharge Orders: Discharge Order (Routine); Ordered 08/02/21 Ordered By: Claudy Orozco Admission Data Admit Date/Time: 02/18/21 23:00 Attending Provider: Claudy Orozco Admit Provider: John Jacob Primary Care Provider: José Peres Other Providers: Claudy Orozco Other Interventions: Discharge Summary Assessment (RN) Last Done: 02/19/21 15:35 Coding Level of Care Code 06537 OBS Care - Discharge Diagnoses Acute chest pain R07.9 Acute febrile illness R50.9 Transaminitis R74.01 Hypertension I10 Atrial fibrillation I48.91 PFO (patent foramen ovale) Q21.1 Hyperlipidemia E78.5 GERD (gastroesophageal reflux disease) K21.9 Asthma J45.909 Hypokalemia E87.6 Bacteremia R78.81
[2021-02-20 10:55] LABS: CMV IgG Antibody >10.00 U/mL; CMV IgM Antibody <30.00 AU/mL
[2021-02-20 12:56] LABS: EBV Virus Capsid Ag IgG Ab >750.00 U/mL
== END 2021-02-19 15:55 | disposition home or self-care (01) ==
LOC: ED 19:11 → 2W 19:11 → SUATTDRO 23:00 → 2W 02-19 00:52

== ENCOUNTER 2021-02-19 20:09 | Inpatient (IN) ==
[2021-02-19 22:17] LABS: Hematocrit (blood only) 42.4 % (37-47); Mean Corpuscular Volume 90.8 fL (80-100); Mean Platelet Volume 9.5 fL (7.4-10.4); Platelet Count 191 K/uL (130-400); RDW Coefficient of Variation 14.1 % (11.5-14.5); RDW Standard Deviation 46.3 fL (36.4-46.3); Red Blood Count 4.67 M/uL (4.2-5.4); White Blood Count 5.55 K/uL (4.8-10.8)
[2021-02-19 22:54] LABS: Albumin Globulin Ratio 1.1 (0.9-2); BUN Creatinine Ratio 18.7 (10-20); Bilirubin,Total 0.4 mg/dl (0.2-1); Calcium 9.2 mg/dl (8.5-10.1); Est GFR (African American) 64.4 ml/min; Est GFR (Non-African American) 55.6 ml/min; Globulin 3.7 gm/dl (2.5-4.0); Potassium 3.6 mmol/L (3.5-5.1); Total Protein 7.7 gm/dl (6.4-8.2)
[2021-02-19 23:06] LABS: ALC (manual) 2.71 K/uL (1.2-3.4); ANC (manual) 1.35 K/uL (1.4-6.5); Basophils # (manual) 0.09 K/uL (0-0.2); Basophils % (manual) 1.7 %; Eosinophils # (manual) 0.43 K/uL (0-0.5); Eosinophils % (manual) 7.8 %; Lymphocytes # (manual) 2.23 K/uL (1.2-3.4); Lymphocytes % (manual) 40.1 %; Monocytes # (manual) 0.97 K/uL (0.11-0.59); Monocytes % (manual) 17.4 %; Neutrophils # (manual) 1.35 K/uL (1.4-6.5); Neutrophils % (manual) 24.3 %; Polychromasia 1+; Reactive Lymphocytes # (manual) 0.48 K/uL; Reactive Lymphocytes % (manual) 8.7 %
[2021-02-19] MEDS ORDERED: VANCOMYCIN HCL 1,250 MG in SODIUM CHLORIDE 0.9% 500 ML IV ONE (23:15)
[2021-02-19] MEDS ORDERED: PIPERACILL/TAZOBAC CONSULT ACTIVE PRN (23:15)
[2021-02-19] MEDS ORDERED: PIPERACILLIN/TAZOBACTAM 4.5 GM/120 ML BAG IV ONE (23:15)
[2021-02-19] MEDS ORDERED: VANCOMYCIN CONSULT ACTIVE PRN (23:15)
[2021-02-19] MEDS ORDERED: SODIUM CHLORIDE 0.9% 1000ML 1,000 ML IV ONE (23:15)
--- NOTE | 2021-02-19 23:18 | Emergency Department Note ---
Impression & Plan Bacteremia, Chronic MISAEL (middle ear effusion) ED Provider Note Name: LYLY SEPLUVEDA Age: 70 Sex: F Arrives Via: Walk-In Informant: Patient ED Provider: Jean Rosa MD Chief Complaint: Bacteria in blood Impression: Bacteremia Left Ear Chronic Effusion Medical Decision Makin yr old female with 4 to 5 days for viral like illness who was admitted yesterday for chest pain and fevers. Discharged to home from hospital just prior to blood culture returning gram +. She was instructed to return to hospital for further management. Given left ear surgery history left mastoid ct done which without clear evidence infectious etiology. Ua clear, cxr clear and otherwise no other obvious source infection. With tachyarrhythmia yesterday tough to rule out some sort of endocarditis. Given positive cultures felt abx indicated. Zosyn and Vanco started. During vanco infusion patient developed redness and itching. Suspect this is vanco related though with cephalosporin allergies could be a bit delayed reaction to zosyn. Benadryl given and vanco stopped. Hospitalist in to evaluation further. Prior Medical Record and Triage/Nursing Notes reviewed by Me Additional history obtained from chart Differentials:Viral syndrome, otitis, pharyngitis, pneumonia, influenza, meningitis, urinary tract infection, sepsis, bacteremia, as well as other pathologies. Vital Signs: reviewed and remarkable for no significant abnormalities Interventions: saline lock, zosyn iv, vancol iv Labs:Reviewed and remarkable for no significant abnormalities Imaging:X ray results are stated below per my interpretation: Chest: 1 view: No infiltrate, no effusion, normal cardiac border. Consults:Dr Cecil HENDRICKS Hospitalist Plan: Disposition:Hospitalization. Condition: Good History of Present Illness:70 yr old female arrives for evaluation of positive blood culture. Patient arrives after initially being discharged from hospital this afternoon. She notes that she developed fevers, chills, body aches and weakness for the last 4 to 5 days. Associated with moderate headache and fatigue. She went to urgent care yesterday to have covid testing and was sent to ED for tachycardia. Due to noted chest discomfort yesterday she was hospitalized after extensive work-up. Discharged feeling much better and well this afternoon. On getting home she received call from Hospitalist requesting her return to hospital as one of her blood cultures had become positive. Patient states she currently feels well other than left ear pain/discomfort. No medications prior to arrival. Nothing makes better nor worse. She notes several weeks left ear pain. 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 She admits that she periodically needs to use drops (complex formula of boric acid, antifungal, steroid, abx) to help with discomfort. Pain started about 3 weeks ago associated with crackling in ear and periodic erythema of ear canal. Similar to previous infections. She had been using drops for last 2 week until a few days ago when she switched to just hydrocortisone ointment. ROS: See above HPI for pertinent positives & negatives. A total of 10 systems reviewed and were otherwise negative. Past Medical History:See Below Past Surgical History:See Below Family History:See Below Social History:See Below Home Medications:See Below Allergies:Cephalosporin, Ciprofloxacin Vitals:Blood Pressure: 173/104, Pulse 90, RR 18, T 36.7C, O2 97% on RA Physical Exam: GENERAL: Patient is well appearing and in minimal distress. EYES: No scleral icterus, unremarkable pupils. ENT: Mucous membranes dry, no nasal congestion. EAR: Right TM normal with tortuous cancel. Left TM off white colored, scarred, appears to have fluid and distal canal moderately erythematous (canal tortuous as well) NECK: No masses appreciated, nomeningismus, trachea is midline. RESPIRATORY: No dyspnea. Clear to auscultation and equal bilaterally. No wheeze, no rhonchi. CARDIOVASCULAR: Regular rate and rhythm.No murmurs, rubs, gallops appreciated. GASTROINTESTINAL: Abdomen soft, non-tender, no peritonitis.Bowel sounds positive.No masses appreciated. BACK: No midline tenderness, no CVA tenderness EXTREMITIES: Normal motion all extremities, no cyanosis, no edema. NEUROLOGIC: Alert and oriented, no acute motor or sensory deficits, no focal weakness, cranial nerves grossly intact. SKIN: No rash, no jaundice, no diaphoresis. PSYCH: Appropriate GCS: 15 ED Course: Times/Reassessments: stable. 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 08/2011. with History of colonoscopy (2018) History of ear surgery History of esophagogastroduodenoscopy (EGD) (2014) History of surgery on wrist History of tubal ligation S/P T&A (status post tonsillectomy and adenoidectomy) Family History Mother Bladder cancer Breast cancer Dementia Hypertension Stroke Sister Breast cancer Father Coronary heart disease Heart disease Hypertension Myocardial infarction Grandfather (Maternal) Myocardial infarction Denies family history of Ovarian cancer Prostate cancer Diabetes Lung cancer Colorectal cancer Social History Smoking Status: Never smoker Second Hand Exposure: No; Hx Alcohol Use: Yes Alcohol type: wine Alcohol Intake Frequency: 4 or More x per/Week Hx Substance Use: No Preferred Language: Setswana Communication Ability: Effective Visual Impairment: No Limitations Hearing Ability: Use of Hearing Aid Emergency Care Tech Required: No Beliefs That Will Affect Care: None marital status: Current Living Situation: Spouse current occupational status: retired Feels Safe at Home: Yes Safety Concerns: Feels Safe At This Time Childhood Exposure to Second-Hand Smoke: Yes caffeine: Yes Dental Care, Regularly: Yes Physical Activity Frequency: 3-4 Times per Week Seatbelt Use: always Sunscreen Use: Yes Assistive Devices: None Allergies Allergies Allergy/AdvReac Type Severity Reaction Status Date / Time Cephalosporins Allergy Intermediate RED, ITCHY Verified 02/19/21 23:21 ciprofloxacin Allergy Unknown UNKNOWN Verified 02/19/21 23:21 Home Meds Home Medications Medication Instructions Recorded Confirmed multivit-iron 18 mg-folic acid 400 1 tab PO DAILY 01/18/19 02/19/21 mcg-calcium 500 mg-minerals tablet (Women's One Daily) omeprazole 40 mg capsule,delayed 40 mg PO DAILY 10/09/20 02/19/21 release albuterol sulfate 90 mcg/actuation 2 puff INH QID PRN g 12/12/20 02/19/21 aerosol inhaler (Ventolin HFA) calcium carbonate 600 mg (1,500 1 tab PO DAILY 02/18/21 02/19/21 mg)-vitamin D3 400 unit tablet (Calcium 600 + D(3)) Previous Rx's Medication Instructions Recorded apixaban 5 mg tablet (Eliquis) 5 mg PO BID #180 tab 03/13/20 fluticasone propionate 100 See Rx Instructions .ROUTE 05/10/20 mcg/actuation blister powder for .COMPLEX #60 blister inhalation (Flovent Diskus) lisinopril 40 mg tablet 20 mg PO DAILY #45 tab 08/09/20 hydrochlorothiazide 12.5 mg tablet 12.5 mg PO QAM #90 tab 12/12/20 rosuvastatin 5 mg tablet (Crestor) 5 mg PO DAILY #90 tab 12/12/20 Results & Data (ED) Vital Signs Vital Signs - 24 hr 02/19/21 20:58 Temperature 36.7 C Temperature Source Temporal Artery Scan Pulse Rate 90 Respiratory Rate 18 Respiratory Depth Normal Blood Pressure 173/104 H Blood Pressure Mean 127 Pulse Oximetry 97 Oxygen Delivery Method Room Air Sepsis Recent Fever Within 48 Hours No Sepsis New/Unexplained Change in Mental Status N/A Sepsis Action Taken by Nursing No Action Required Laboratory Data Result diagrams: 02/19/21 22:00 02/19/21 22:00 Lab Results 02/19/21 02/19/21 Range/Units 22:00 22:00 WBC 5.55 (4.8-10.8) K/uL RBC 4.67 (4.2-5.4) M/uL Hgb 14.0 (12.0-16.0) g/dL Hct 42.4 (37-47) % MCV 90.8 (80-100) fL MCH 30.0 (25-34) pg MCHC 33.0 (32-36) g/dL RDW Std Deviation 46.3 (36.4-46.3) fL RDW Coeff of Mario 14.1 (11.5-14.5) % Plt Count 191 (130-400) K/uL MPV 9.5 (7.4-10.4) fL Neutrophils % (Manual) 24.3 % Lymphocytes % (Manual) 40.1 % Reactive Lymphs % (Man) 8.7 % Monocytes % (Manual) 17.4 % Eosinophils % (Manual) 7.8 % Basophils % (Manual) 1.7 % Neutrophils # (Manual) 1.35 L (1.4-6.5) K/uL Total Absolute Neuts 1.35 L (1.4-6.5) K/uL Lymphocytes # (Manual) 2.23 (1.2-3.4) K/uL Reactive Lymphs # 0.48 K/uL Total Abs Lymphocytes 2.71 (1.2-3.4) K/uL Monocytes # (Manual) 0.97 H (0.11-0.59) K/uL Eosinophils # (Manual) 0.43 (0-0.5) K/uL Basophils # (Manual) 0.09 (0-0.2) K/uL Polychromasia 1+ Sodium 140 (136-145) mmol/L Potassium 3.6 (3.5-5.1) mmol/L Chloride 108 H (98-107) mmol/L Carbon Dioxide 26 (21-32) mmol/L Anion Gap 7.0 (3-11) BUN 19 H D (7-18) mg/dl Creatinine 1.01 (0.6-1.2) mg/dl Est Cr Clr Drug Dosing 49.0 ml/min Est GFR ( Amer) 64.4 ml/min Est GFR (Non-Af Amer) 55.6 ml/min BUN/Creatinine Ratio 18.7 (10-20) Glucose 104 H (70-99) mg/dl Calcium 9.2 (8.5-10.1) mg/dl Total Bilirubin 0.4 (0.2-1) mg/dl AST 84 H (15-37) U/L ALT 92 H (12-78) U/L Alkaline Phosphatase 113 (45-117) U/L Total Protein 7.7 (6.4-8.2) gm/dl Albumin 4.0 (3.4-5.0) gm/dl Globulin 3.7 (2.5-4.0) gm/dl Albumin/Globulin Ratio 1.1 (0.9-2) Specimen Hemolysis Administered Medications Discontinued Medications Diphenhydramine HCl (Diphenhydramine 50 Mg/Ml Vial) 50 mg IV NOW STA Stop: 02/20/21 02:24 Last Admin: 02/20/21 02:35 Dose: 50 mg Documented by: [id number] Sodium Chloride (Nss 1000ml) 1,000 mls @ 999 mls/hr IV .Q1H1M ONE Stop: 02/20/21 00:15 Last Infusion: 02/20/21 01:43 Dose: 0 mls/hr Documented by: [id number] Admin: 02/20/21 00:34 Dose: 999 mls/hr Documented by: [id number] Piperacillin Sod/Tazobactam Sod (Zosyn) 4.5 gm in 120 mls @ 240 mls/hr IV NOW ONE Stop: 02/19/21 23:44 Last Infusion: 02/20/21 01:14 Dose: 0 mls/hr Documented by: [id number] Admin: 02/20/21 00:33 Dose: 240 mls/hr Documented by: [id number] Vancomycin HCl 1,250 mg/ (Sodium Chloride) 525 mls @ 200 mls/hr IV NOW ONE Stop: 02/20/21 01:52 Last Infusion: 02/20/21 02:45 Dose: 0 mls/hr Documented by: [id number] Infusion: 02/20/21 02:44 Dose: 100 mls/hr Documented by: [id number] Admin: 02/20/21 01:25 Dose: 200 mls/hr Documented by: [id number] Ioversol (Optiray 320 100ml) 94 ml IV ONCE ONE Stop: 02/19/21 23:25 Last Admin: 02/19/21 23:24 Dose: 1 ml Documented by: [id number] Discharge Plan Visit Data Chief Complaint: Referred by Doctor Stated Complaint: BACTERIA IN BLOOD ED Provider: Jean Rosa Discharge Problem: Bacteremia, Chronic MISAEL (middle ear effusion) Patient Disposition: Admitted As Inpatient Discharge Instructions Interventions: ED Discharge Assessment Last Done: 02/20/21 02:41 Discharge Problem: Chronic MISAEL (middle ear effusion) Qualifiers: Laterality: left Qualified Code(s): H65.492 - Other chronic nonsuppurative otitis media, left ear
[2021-02-19] MEDS ORDERED: OPTIRAY 320 100ml IV ONE (23:24)
--- NOTE | 2021-02-20 00:39 | History & Physical Report ---
Date of Service February 20, 2021 Assessment & Plan (1) Bacteremia: Plan: Gram-positive bacteremia of uncertain source- Admit to [facility] with telemetry Patient was given Zosyn IV and vancomycin IV in the emergency department, however, began to develop severe "red man" syndrome, and vancomycin was discontinued. Zyvox 60 mg IV every 12 hours empirically Order echocardiogram to assess for possible endocarditis, as patient did have an episode of palpitations on February 18 prior to being admitted Patient did have a CT scan of head/mastoid in the ED this evening, which showed the following: Status post left mastoidectomy. Intact right temporal bone, mastoids, outer ear canal and middle ear. Air-fluid level in the bilateral maxillary sinuses. Diffuse partial opacification of the paranasal sinuses. Patient reports having had multiple surgeries for cholesteatomas. (2) Atrial fibrillation: Plan: Atrial fibrillation/PFO/hypertension Continue apixaban, lisinopril and HCTZ (3) Transaminitis: Plan: Transaminitis/hepatic steatosis- CT abdomen pelvis otherwise normal last admission. Transaminases had improved somewhat on February 19, but have worsened slightly again upon admission today. At last admission, she did have the following labs negative, COVID-19, Lyme disease, negative anaplasmosis smear and mono screen. She does have pending cytomegalovirus antibodies and Neo-Jackson virus antibodies Do not see any value at this point to ordering an acute hepatitis profile (4) Hyperlipidemia: Plan: Continue rosuvastatin (5) GERD (gastroesophageal reflux disease): Plan: Continue pantoprazole (6) Asthma: Plan: No recent issues (7) Hypertension: Plan: See above History of Present Illness Chief Complaint: The patient presents to the emergency department after receiving a call from the hospitalist service due to the late report of blood cultures 2/2 growing gram-positive cocci after being discharged from the hospital earlier in the day Primary Care Provider: José Peres DO The patient is a 70-year-old female with a past medical history including transaminitis, tachycardia, hypertension, atrial fibrillation, PFO, history of CVA, hyperlipidemia, GERD, facial pain, asthma and osteoporosis. She was most recently admitted to [facility] from 02/18-02/19 after presenting with upper sternal discomfort and chest tightness and laboratories showing transaminitis. Her work-up at that time included a CT of abdomen pelvis which showed hepatic steatosis, and a normal HIDA scan. She had been discharged to the home on February 19, but unfortunately after discharge, blood cultures 08/22 revealed gram- positive cocci, and she was asked to return to the hospital for admission and further work-up. Allergies Allergy/AdvReac Type Severity Reaction Status Date / Time Cephalosporins Allergy Intermediate RED, ITCHY Verified 02/19/21 23:21 ciprofloxacin Allergy Unknown UNKNOWN Verified 02/19/21 23:21 Home Medications Medication Instructions Recorded Confirmed Type multivit-iron 18 mg-folic acid 400 1 tab PO DAILY 01/18/19 02/19/21 History mcg-calcium 500 mg-minerals tablet (Women's One Daily) apixaban 5 mg tablet (Eliquis) 5 mg PO BID #180 tab 03/13/20 02/19/21 Rx fluticasone propionate 100 See Rx Instructions .ROUTE 05/10/20 02/19/21 Rx mcg/actuation blister powder for .COMPLEX #60 blister inhalation (Flovent Diskus) lisinopril 40 mg tablet 20 mg PO DAILY #45 tab 08/09/20 02/19/21 Rx omeprazole 40 mg capsule,delayed 40 mg PO DAILY 10/09/20 02/19/21 History release albuterol sulfate 90 mcg/actuation 2 puff INH QID PRN g 12/12/20 02/19/21 History aerosol inhaler (Ventolin HFA) hydrochlorothiazide 12.5 mg tablet 12.5 mg PO QAM #90 tab 12/12/20 02/19/21 Rx rosuvastatin 5 mg tablet (Crestor) 5 mg PO DAILY #90 tab 12/12/20 02/19/21 Rx calcium carbonate 600 mg (1,500 1 tab PO DAILY 02/18/21 02/19/21 History mg)-vitamin D3 400 unit tablet (Calcium 600 + D(3)) Past Med/Surg History Medical History (Updated 02/20/21 @ 04:16 by Jean Rosa MD) Allergic rhinitis Asthma Atrial fibrillation 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 08/2011. with History of colonoscopy (2018) History of ear surgery History of esophagogastroduodenoscopy (EGD) (2014) History of surgery on wrist History of tubal ligation S/P T&A (status post tonsillectomy and adenoidectomy) Family History Mother Bladder cancer Breast cancer Dementia Hypertension Stroke Sister Breast cancer Father Coronary heart disease Heart disease Hypertension Myocardial infarction Grandfather (Maternal) Myocardial infarction Denies family history of Ovarian cancer Prostate cancer Diabetes Lung cancer Colorectal cancer Social History Smoking Status: Never smoker Second Hand Exposure: No; Hx Alcohol Use: Yes Alcohol type: wine Alcohol Intake Frequency: 4 or More x per/Week Hx Substance Use: No Preferred Language: Bulgarian Communication Ability: Effective Visual Impairment: No Limitations Hearing Ability: Use of Hearing Aid Bone Char Operator Required: No Beliefs That Will Affect Care: None marital status: Current Living Situation: Spouse current occupational status: retired Feels Safe at Home: Yes Safety Concerns: Feels Safe At This Time Childhood Exposure to Second-Hand Smoke: Yes caffeine: Yes Dental Care, Regularly: Yes Physical Activity Frequency: 3-4 Times per Week Seatbelt Use: always Sunscreen Use: Yes Assistive Devices: None Review of Systems Review of Systems: The patient denies chest pain, palpitations, shortness of breath, dyspnea on exertion, cough, lower extremity swelling, sore throat, fevers, chills, sweats, nausea, vomiting, diarrhea , constipation, abdominal pain, pelvic pain, blood in urine or stool, dysuria, urinary frequency or urgency, lightheadedness, dizziness, headache, memory loss, loss of consciousness, rash, abnormal bruising or bleeding, imbalance, focal or generalized weakness, numbness or tingling in arms or legs, generalized arthralgias or myalgias, back or neck pain, or night sweats. The review of systems is otherwise negative other than for that already noted above, and at least 10 systems have been reviewed. Physical Exam Physical Exam: The patient is awake, alert and oriented 3, well developed and well nourished, normocephalic and atraumatic, lying in bed and in no acute distress. HEENT--PERRL, EOMI, mucous membranes and oropharynx normal. Neck--supple. No JVD. No bruits. Thyroid normal, trachea midline, no adenopathy. Heart--normal S1 and S2. No murmurs, rubs or gallops. Lungs--clear bilaterally, no respiratory distress, no accessory muscle use. Abdomen--normal bowel sounds and soft. Nontender. Nondistended. Extremities--no cyanosis or clubbing. No edema. Dermatologic--normal skin turgor, normal color, no abnormal lymph nodes, no rash. Neurologic--cranial nerves II through XII grossly intact. Rheumatologic--normal range of motion. Psychiatric--normal affect. Results & Data Results & Data ([facility]) Vital Signs (Past 12 Hours) Vital Signs Temp Pulse Resp BP Pulse Ox 02/19/21 20:58 98.1 F 90 18 173/104 H 97 Laboratory Results Laboratory Results WBC 5.55 K/uL (4.8-10.8) 02/19/21 22:00 RBC 4.67 M/uL (4.2-5.4) 02/19/21 22:00 Hgb 14.0 g/dL (12.0-16.0) 02/19/21 22:00 Hct 42.4 % (37-47) 02/19/21 22:00 MCV 90.8 fL (80-100) 02/19/21 22:00 MCH 30.0 pg (25-34) 02/19/21 22:00 MCHC 33.0 g/dL (32-36) 02/19/21 22:00 RDW Std Deviation 46.3 fL (36.4-46.3) 02/19/21 22:00 RDW Coeff of Mario 14.1 % (11.5-14.5) 02/19/21 22:00 Plt Count 191 K/uL (130-400) 02/19/21 22:00 MPV 9.5 fL (7.4-10.4) 02/19/21 22:00 Neutrophils % (Manual) 24.3 % 02/19/21 22:00 Lymphocytes % (Manual) 40.1 % 02/19/21 22:00 Reactive Lymphs % (Man) 8.7 % 02/19/21 22:00 Monocytes % (Manual) 17.4 % 02/19/21 22:00 Eosinophils % (Manual) 7.8 % 02/19/21 22:00 Basophils % (Manual) 1.7 % 02/19/21 22:00 Neutrophils # (Manual) 1.35 K/uL (1.4-6.5) L 02/19/21 22:00 Total Absolute Neuts 1.35 K/uL (1.4-6.5) L 02/19/21 22:00 Lymphocytes # (Manual) 2.23 K/uL (1.2-3.4) 02/19/21 22:00 Reactive Lymphs # 0.48 K/uL 02/19/21 22:00 Total Abs Lymphocytes 2.71 K/uL (1.2-3.4) 02/19/21 22:00 Monocytes # (Manual) 0.97 K/uL (0.11-0.59) H 02/19/21 22:00 Eosinophils # (Manual) 0.43 K/uL (0-0.5) 02/19/21 22:00 Basophils # (Manual) 0.09 K/uL (0-0.2) 02/19/21 22:00 Polychromasia 1+ 02/19/21 22:00 Sodium 140 mmol/L (136-145) 02/19/21 22:00 Potassium 3.6 mmol/L (3.5-5.1) 02/19/21 22:00 Chloride 108 mmol/L (98-107) H 02/19/21 22:00 Carbon Dioxide 26 mmol/L (21-32) 02/19/21 22:00 Anion Gap 7.0 (3-11) 02/19/21 22:00 BUN 19 mg/dl (7-18) H D 02/19/21 22:00 Creatinine 1.01 mg/dl (0.6-1.2) 02/19/21 22:00 Est Cr Clr Drug Dosing 49.0 ml/min 02/19/21 22:00 Est GFR ( Amer) 64.4 ml/min 02/19/21 22:00 Est GFR (Non-Af Amer) 55.6 ml/min 02/19/21 22:00 BUN/Creatinine Ratio 18.7 (10-20) 02/19/21 22:00 Glucose 104 mg/dl (70-99) H 02/19/21 22:00 Calcium 9.2 mg/dl (8.5-10.1) 02/19/21 22:00 Total Bilirubin 0.4 mg/dl (0.2-1) 02/19/21 22:00 AST 84 U/L (15-37) H 02/19/21 22:00 ALT 92 U/L (12-78) H 02/19/21 22:00 Alkaline Phosphatase 113 U/L (45-117) 02/19/21 22:00 Total Protein 7.7 gm/dl (6.4-8.2) 02/19/21 22:00 Albumin 4.0 gm/dl (3.4-5.0) 02/19/21 22:00 Globulin 3.7 gm/dl (2.5-4.0) 02/19/21 22:00 Albumin/Globulin Ratio 1.1 (0.9-2) 02/19/21 22:00 Specimen Hemolysis 02/19/21 22:00 Urine Color Yellow 02/20/21 00:40 Urine Appearance Clear (Clear) 02/20/21 00:40 Urine pH 5.5 (4.5-7.5) 02/20/21 00:40 Ur Specific [place] > 1.045 (1.000-1.030) H 02/20/21 00:40 Urine Protein Negative (Negative) 02/20/21 00:40 Urine Glucose (UA) Negative (Negative) 02/20/21 00:40 Urine Ketones 1+ (Negative) H 02/20/21 00:40 Urine Blood Trace (Negative) H 02/20/21 00:40 Urine Nitrite Negative (Negative) 02/20/21 00:40 Urine Bilirubin Negative (Negative) 02/20/21 00:40 Urine Urobilinogen Negative (Negative) 02/20/21 00:40 Ur Leukocyte Esterase Negative (Negative) 02/20/21 00:40 Urine WBC (Auto) 5-10 /hpf (0-5) H 02/20/21 00:40 Urine RBC (Auto) 0-4 /hpf (0-4) 02/20/21 00:40 U Hyaline Cast (Auto) 1-5 /lpf (0-5) 02/20/21 00:40 U Epithel Cells (Auto) 20-30 /lpf (0-5) H 02/20/21 00:40 Urine Bacteria (Auto) Negative (Negative) 02/20/21 00:40 Code Status & VTE Plan Code Status Full code VTE Prophylaxis Plan VTE Prophylaxis will be ordered: Yes PG Care Time/CCT Total # of Minutes Spent Total Time Spent with Patient: Total time spent is greater than 50% in coordination of care (as documented) at patient's floor/unit and/or counseling patient: Coding Level of Care Code INT OBSERVATION CARE 70M LVL 3 Diagnoses Bacteremia R78.81 Atrial fibrillation I48.91 Transaminitis R74.01 Hyperlipidemia E78.5 GERD (gastroesophageal reflux disease) K21.9 Asthma J45.909 Hypertension I10
[2021-02-20 01:02] LABS: Appearance Urine Clear (Clear); Bacteria Urine Automated Negative (Negative); Bilirubin Urine Negative (Negative); Blood Urine Trace (Negative); Color Urine Yellow; Epithelial Cell Urine Auto 20-30 /lpf (0-5); Glucose Urine UA Negative (Negative); Ketones Urine 1+ (Negative); Leukocyte Esterase Urine Negative (Negative); Nitrite Urine Negative (Negative); Protein Urine Negative (Negative); RBC Urine Automated 0-4 /hpf (0-4); Specific Gravity Urine > 1.045 (1.000-1.030); Urobilinogen Urine Negative (Negative); pH Urine 5.5 (4.5-7.5)
[2021-02-20] MEDS ORDERED: diphenhydrAMINE 50 MG/ML VIAL IV STA (02:23)
[2021-02-20] MEDS ORDERED: ACETAMINOPHEN 325 MG TAB PO PRN (03:04)
[2021-02-20] MEDS ORDERED: LINEZOLID CONSULT ACTIVE PRN (03:04)
[2021-02-20] MEDS ORDERED: ONDANSETRON INJ 2 MG/ML 2 ML VIAL IV PRN (03:04)
[2021-02-20] MEDS ORDERED: NITROGLYCERIN SL 0.4 MG/TAB TAB SL PRN (03:04)
[2021-02-20] MEDS ORDERED: VANCOMYCIN CONSULT ACTIVE PRN (03:04)
[2021-02-20 05:15] LABS: Hematocrit (blood only) 36.6 % (37-47); Hemoglobin 12.1 g/dL (12.0-16.0); Mean Corpuscular Hemoglobin 30.2 pg (25-34); Mean Corpuscular Hgb Conc 33.1 g/dL (32-36); Mean Corpuscular Volume 91.3 fL (80-100); Mean Platelet Volume 8.9 fL (7.4-10.4); Platelet Count 163 K/uL (130-400); RDW Coefficient of Variation 13.9 % (11.5-14.5); RDW Standard Deviation 46.7 fL (36.4-46.3); Red Blood Count 4.01 M/uL (4.2-5.4); White Blood Count 5.01 K/uL (4.8-10.8)
[2021-02-20 05:44] LABS: Basophils # (auto) 0.07 K/uL (0-0.2); Basophils % (auto) 1.4 %; Eosinophils # (auto) 0.21 K/uL (0-0.5); Eosinophils % (auto) 4.2 %; Lymphocytes # (auto) 2.44 K/uL (1.2-3.4); Lymphocytes % (auto) 48.7 %; Monocytes # (auto) 0.88 K/uL (0.11-0.59); Monocytes % (auto) 17.6 %; Neutrophils # (auto) 1.41 K/uL (1.4-6.5); Neutrophils % (auto) 28.1 %
[2021-02-20 05:48] LABS: Albumin Level 3.1 gm/dl (3.4-5.0); BUN Creatinine Ratio 19.3 (10-20); Calcium 8.2 mg/dl (8.5-10.1); Creatinine Clr Calc Pharmacy 70.6 ml/min; Est GFR (African American) 100.3 ml/min; Est GFR (Non-African American) 86.6 ml/min; Potassium 3.8 mmol/L (3.5-5.1)
[2021-02-20 05:53] LABS: Bilirubin,Total 0.4 mg/dl (0.2-1); Globulin 3.1 gm/dl (2.5-4.0); Total Protein 6.2 gm/dl (6.4-8.2)
[2021-02-20] MEDS ORDERED: LINEZOLID 600 MG/300 ML D5W IV SCH (06:00)
[2021-02-20] MEDS ORDERED: LINEZOLID 600 MG/300 ML BAG IV SCH (06:15)
--- NOTE | 2021-02-20 07:42 | XRay Report ---
XR chest 1V portable HISTORY: 70 years-old Female Fever acute fever COMPARISON: Chest radiograph 02/18/2021 TECHNIQUE: Portable AP view of the chest FINDINGS: Cardiac silhouette appears normal. Mild asymmetric left hilar prominence is unchanged. There is no pn eumothorax, pleural effusion, airspace consolidation or overt pulmonary edema. Unchanged mild left toribio ng base atelectasis/scarring. Degenerative changes of the shoulders and spine. Chronic fracture defor mity of the left proximal humerus. IMPRESSION: No acute process. ACT 112: Negative or not required by law. The above report was generated using voice recognition software. It may contain grammatical, syntax o r spelling errors. Electronically signed by: Neftaly Koenig M.D. 02/20/2021 7:40 AM
[2021-02-20] MEDS: APIXABAN 5 MG TABLET PO SCH ×2 (10:14→19:52)
[2021-02-20] MEDS: hydroCHLOROthiazide 25 MG TAB PO SCH (10:14)
[2021-02-20] MEDS: MULTIVITAMIN TAB PO SCH (10:15)
[2021-02-20] MEDS: CALCIUM 600MG + VIT D 400 IU TAB PO SCH (10:15)
[2021-02-20] MEDS: ROSUVASTATIN CALCIUM 5 MG TAB PO SCH (10:15)
[2021-02-20] MEDS: PANTOprazole 40 MG TAB PO SCH (10:15)
[2021-02-20] MEDS: lisinopril 20 MG TAB PO SCH (10:15)
--- NOTE | 2021-02-20 10:17 | CT Scan Report ---
CT mastoid w con HISTORY: 70 years-old Female Previous left ear surgery, increasing pain, sepsis acute sepsis with le ft-sided ear pain COMPARISON: CTA of the head 12/31/2015 TECHNIQUE: Multiple axial CT images of the temporal bones were obtained following the intravenous adm inistration of 94 mL Optiray 320. Coronal and sagittal reformatted images were obtained and submitted for review. A dose lowering technique was used consistent with the principals of PATRICA. FINDINGS: Moderate mucosal thickening with aerosolized secretions of the maxillary, sphenoid and ethmoid sinuse s with scattered air-fluid levels. Mild mucosal thickening of the frontal sinuses. Leftward bowing an d spurring the nasal septum. Large right-sided ha bullosa. No acute facial bone or calvarial frac ture identified. No acute abnormality of the imaged intracranial structures. The facial soft tissues are within normal limits with asymmetric fatty atrophy of the left parotid gland. Left temporal bone: Postoperative changes of prior partial mastoidectomy. Trace fluid within the middle ear cavity. Trace mastoid effusion is noted with air in the surgical defect. There is soft tissue thickening of the ty mpanic membrane. Mild erosion of the left incus, image 140 with adjacent soft tissue prominence measu ring 3 x 5 mm along the superior posterior aspect of the tympanic membrane. The course of the facial nerve is unremarkable. No drainable fluid collection or significant inflammatory changes. No jugular dehiscence. Normal course of the petrous internal carotid artery. Semicircular canals and cochlea are unremarkable. Right temporal bone: Mastoid effusion. The ossicles and tympanic membrane appear normal. Course of th e 7th cranial nerves are within normal limits. No jugular dehiscence. Normal course of the petrous in ternal carotid artery. Semicircular canals and cochlea appear unremarkable. IMPRESSION: 1. Postoperative changes of partial left-sided mastoidectomy with trace left mastoid effusion and tra ce fluid within the middle ear cavity, similar to the 2016 comparison. 2. There is moderate thickening of the left tympanic membrane with mild retraction. 3. Mild left-sided ossicular erosion with soft tissue density in the middle ear suspicious for choles teatoma. 4. Moderate paranasal sinus disease as detailed above. ACT 112: Negative or not required by law. The above report was generated using voice recognition software. It may contain grammatical, syntax o r spelling errors. Electronically signed by: Neftaly Koenig M.D. 02/20/2021 10:15 AM
[2021-02-20] MEDS: metroNIDAZOLE 500 MG/100 ML BAG IV SCH ×2 (10:51→17:23)
--- NOTE | 2021-02-20 10:53 | ENT Consultation ---
Date of Consultation February 20, 2021 Assessment & Plan (1) Bacteremia: (2) Sinusitis: 70yF with history of L cholesteatoma s/p CWU mastoidectomy 2002/2004/2006 now admitted with gram positive bacilli anaerobic bactermia and evidence of acute on chronic sinusitis on imaging and exam. Ear exam and imaging are reassuring. -No surgical intervention at this time, ok for PO -Culture-directed abx, agree with current abx for now -As patient is relatively asymptomatic from a sinus standpoint, may need to reimage to monitor progress/response to antibiotics. Will also continue to follow BCx -F/u nasal culture -May ultimately require endoscopic sinus surgery with septoplasty/resection of ha bullosa, acutely if does not improve with abx or more likely in a delayed fashion once acute infection clears -Please call with questions History of Present Illness Reason for Consultation: bacteremia Attending Physician: Claudy Orozco MD History of Present Illness 70yF with a history of L cholesteatoma s/p CWU mastoidectomy 2002 and second look 2004 (Dr. Mosley - [place]) presenting with bacteremia. Admitted yesterday with tachycardia/chest pain and discharged home. BCx turned positive (gram positive bacilli on anaerobic culture) and she was called back. Currently no fever, tachycardia, hypotension. WBC wnl. Has had ongoing issues with L otalgia and mild otorrhea. Treated with several courses of drops and CSF powder. Last visit with Dr. Mosley 01/16/21 without acute infection or effusion. Denies nasal obstruction, hyposmia, facial pressure. +headache. +PND CT IAC showed per my read acute on chronic sinusitis involving bilateral maxillary, bilateral sphenoid, scattered ehtmoid sinuses. Frontals not well v isualized. Large R ha bullosa, sig septal deviation to left. Mild middle ear mucosal thickening without effusion or infection. Previous L mastoidectomy without evidence of recurrent cholesteatoma or mastoiditis. Allergies Allergy/AdvReac Type Severity Reaction Status Date / Time Cephalosporins Allergy Intermediate RED, ITCHY Verified 02/19/21 23:21 ciprofloxacin Allergy Unknown UNKNOWN Verified 02/19/21 23:21 Home Medications Medication Instructions Recorded Confirmed Type multivit-iron 18 mg-folic acid 400 1 tab PO DAILY 01/18/19 02/19/21 History mcg-calcium 500 mg-minerals tablet (Women's One Daily) apixaban 5 mg tablet (Eliquis) 5 mg PO BID #180 tab 03/13/20 02/19/21 Rx fluticasone propionate 100 See Rx Instructions .ROUTE 05/10/20 02/19/21 Rx mcg/actuation blister powder for .COMPLEX #60 blister inhalation (Flovent Diskus) lisinopril 40 mg tablet 20 mg PO DAILY #45 tab 08/09/20 02/19/21 Rx omeprazole 40 mg capsule,delayed 40 mg PO DAILY 10/09/20 02/19/21 History release albuterol sulfate 90 mcg/actuation 2 puff INH QID PRN g 12/12/20 02/19/21 History aerosol inhaler (Ventolin HFA) hydrochlorothiazide 12.5 mg tablet 12.5 mg PO QAM #90 tab 12/12/20 02/19/21 Rx rosuvastatin 5 mg tablet (Crestor) 5 mg PO DAILY #90 tab 12/12/20 02/19/21 Rx calcium carbonate 600 mg (1,500 1 tab PO DAILY 02/18/21 02/19/21 History mg)-vitamin D3 400 unit tablet (Calcium 600 + D(3)) Patient History Medical History (Updated 02/20/21 @ 11:05 by John Leach MD) Allergic rhinitis Asthma Atrial fibrillation 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 08/2011. with History of colonoscopy (2018) History of ear surgery History of esophagogastroduodenoscopy (EGD) (2014) History of surgery on wrist History of tubal ligation S/P T&A (status post tonsillectomy and adenoidectomy) Family History Mother Bladder cancer Breast cancer Dementia Hypertension Stroke Sister Breast cancer Father Coronary heart disease Heart disease Hypertension Myocardial infarction Grandfather (Maternal) Myocardial infarction Denies family history of Ovarian cancer Prostate cancer Diabetes Lung cancer Colorectal cancer Social History Smoking Status: Never smoker Second Hand Exposure: No; Hx Alcohol Use: Yes Alcohol type: wine Alcohol Intake Frequency: 4 or More x per/Week Hx Substance Use: No Preferred Language: Ethiopian Communication Ability: Effective Visual Impairment: No Limitations Hearing Ability: Use of Hearing Aid Event Lighting Specialist Required: No Beliefs That Will Affect Care: None marital status: Current Living Situation: Spouse current occupational status: retired Feels Safe at Home: Yes Safety Concerns: Feels Safe At This Time Childhood Exposure to Second-Hand Smoke: Yes caffeine: Yes Dental Care, Regularly: Yes Physical Activity Frequency: 3-4 Times per Week Seatbelt Use: always Sunscreen Use: Yes Assistive Devices: None Review of Systems Review of Systems: A 10-point ROS is negative except as noted above Physical Exam Physical Exam: General: The patient is well-developed, well-nourished, and in no acute distress. Head and Face: Skull: No obvious deformities Sinus tenderness: There is no tenderness to palpation of the sinuses. Salivary glands: The parotid and submandibular glands are normal in appearance and there are no masses on palpation. Facial strength: Facial motion is symmetric and without weakness. Eyes: Eyelids: There is no periorbital edema. Conjunctiva: There is no conjunctival erythema. Pupils: The pupils are equal, round, and reactive to light. Extraocular muscles: Extraocular movement is normal. Nystagmus: There is no nystagmus. Ears: Right auricle: The pinna is normally formed without skin lesion or mass. Postauricular changes consistent with prior mastoidectomy. No erythema/bogginess/tenderness/proptosis. No tenderness with manipulation of tragus or pinna. Left auricle: The pinna is normally formed without skin lesion or mass. Postauricular changes consistent with prior mastoidectomy. No erythema/bogginess/tenderness/proptosis. No tenderness with manipulation of tragus or pinna. Right EAC: There is no external auditory canal erythema, edema, lesion, or mass. Left EAC: There is no external auditory canal erythema, edema, lesion, or mass. Right TM/middle ear: TM is intact without perforation, flat, and translucent. The middle ear space is clear Left TM/middle ear: TM is retracted and mucosalized with scant moisture medially along TM, no vandana otorrhea. Remnant CSF powder on TM. Hearing: Clinical speech vegetable tester threshold testing is grossly normal. Nose: External: There is no gross external deformity, tenderness, or skin lesion or mass. Mucosa: Moderate nasal mucosal edema/inflammation Septum: The nasal septum is severely deviated to the left Nasal cavity: Bilat ITH, see nasal endoscopy Oral cavity/Oropharynx: Lips: There are no lip lesions or masses. Oral cavity: There is no inflammation, lesion, or mass involving the gums, gingiva, floor of mouth, buccal mucosa, retromolar trigone, hard palate, soft palate, tongue. Dentition is intact. Oropharynx: There is no inflammation, lesion, or mass involving the palatine tonsils or posterior pharyngeal wall. Tonsils surgically absent Neck: General: There are no visible scars or lesions involving the neck. There are no visible or palpable masses involving the neck. The trachea is midline. Lymph nodes: There is no visible or palpable neck lymphadenopathy. Thyroid: There is no visible or palpable thyroid enlargement or nodularity. Respiratory/Pulmonary: There is no stertor or stridor. There is normal respiratory effort without acute distress. Cardiovascular: There is no visible extremity edema. Skin: There are no visible lesions or masses involving the skin of the head and neck region. Neurological: Cranial nerves: Cranial nerve II is noted to be intact by grossly normal visual acuity. Cranial nerves III, IV, and are noted to be intact by normal extraocular movements. Cranial nerve V is noted to be intact by normal facial sensation. Cranial nerve VII is noted to be intact by symmetric and normal facial movement. Cranial nerve VIII is noted to be intact by a relatively normal clinical speech vegetable tester threshold. Cranial nerve IX is noted to be intact by an intact gag reflex and normal palatal movement. Cranial nerve X is noted to be intact by a normal voice. Cranial nerve XI is noted to be intact by normal shoulder and head movement. Cranial nerve XII is noted to be intact by normal symmetric tongue movement. Vestibular system: The patient has a normal gait. There is no spontaneous or gaze evoked nystagmus. Psychiatric: Mental status: The patient is awake and alert. Mood/affect: The patient has a normal mood and affect. Procedure: Diagnostic nasal endoscopy Indication: Sinusitis Details: Following the application of topical lidocaine and afrin, the bilateral nasal cavities were examined with a 0-degree 4-mm rigid endoscope. The septum wasas described above. Examination of the left side revealed a clear middle meatus. The exam was limited due to the septal deviation. There was no mucup urulence or polyps. Examination of the right side revealed a widened middle turbinate with mucoid secretions from the middle meatus, cultured. There was no polyposis. The nasopharynx was clear. The turbinates were hypertrophied in size and responded to topical decongestant spray. The patient tolerated the procedure well. Results & Data ([facility]) Vital Signs (Past 12 Hours) Vital Signs Temp Pulse Pulse Resp BP BP Pulse Ox 02/20/21 08:55 36.5 C 86 20 140/82 94 02/20/21 03:36 36.5 C 74 14 148/84 H 98 02/20/21 01:31 79 20 152/77 H PG Care Time/CCT Total # of Minutes Spent Total Time Spent with Patient: Total time spent is greater than 50% in coordination of care (as documented) at patient's floor/unit and/or counseling patient: Coding Level of Care Code 21355 Initial Inpt Care Lvl 2 Diagnoses Bacteremia R78.81 Sinusitis J32.9 CPT Codes Nasal Endoscopy, Dx - 20679 ([id number])
--- NOTE | 2021-02-20 18:24 | History & Physical Bridge Note ---
Date of Service February 20, 2021 History & Physical Bridge Note I have examined the patient, reviewed the History & Physical and in the interval since the performance of the History & Physical I have noted the following changes of clinical significance: no changes noted Doing well today. No major issues. Still no symptoms from bacteremia. Seen by ENT who do feel she has a sinusitis. I discussed with ID in [place] who feel that blood culture is likely a contaminant. Will monitor overnight, with hope for further blood cultures negative and can discharge on oral abx for her sinusitis.
[2021-02-20] MEDS: AMPICILLIN/SULBACTAM SOD 3,000 MG in 0.9 % SODIUM CHLORIDE 100 ML IV SCH (19:52)
--- NOTE | 2021-02-20 22:18 | XCELERA ---
[id number]
[2021-02-21] MEDS: AMPICILLIN/SULBACTAM SOD 3,000 MG in 0.9 % SODIUM CHLORIDE 100 ML IV SCH (01:32)
[2021-02-21 08:32] LABS: Basophils # (auto) 0.05 K/uL (0-0.2); Basophils % (auto) 0.8 %; Eosinophils # (auto) 0.34 K/uL (0-0.5); Eosinophils % (auto) 5.2 %; Hematocrit (blood only) 43.9 % (37-47); Hemoglobin 14.5 g/dL (12.0-16.0); Immature Granulocytes # (auto) 0.01 K/uL (0.00-0.02); Immature Granulocytes % (auto) 0.2 %; Lymphocytes # (auto) 3.06 K/uL (1.2-3.4); Lymphocytes % (auto) 46.6 %; Mean Corpuscular Hemoglobin 30.2 pg (25-34); Mean Corpuscular Volume 91.5 fL (80-100); Mean Platelet Volume 9.5 fL (7.4-10.4); Monocytes # (auto) 0.47 K/uL (0.11-0.59); Monocytes % (auto) 7.2 %; Neutrophils # (auto) 2.63 K/uL (1.4-6.5); Platelet Count 224 K/uL (130-400); RDW Standard Deviation 47.1 fL (36.4-46.3); White Blood Count 6.56 K/uL (4.8-10.8)
[2021-02-21] MEDS: AMOXICILLIN/CLAVULANATE 875 MG TAB PO ONE ×2 (09:02→09:14)
[2021-02-21] MEDS: APIXABAN 5 MG TABLET PO SCH (09:14)
[2021-02-21] MEDS: hydroCHLOROthiazide 25 MG TAB PO SCH (09:15)
[2021-02-21] MEDS: lisinopril 20 MG TAB PO SCH (09:15)
[2021-02-21] MEDS: CALCIUM 600MG + VIT D 400 IU TAB PO SCH (09:15)
[2021-02-21] MEDS: MULTIVITAMIN TAB PO SCH (09:16)
[2021-02-21] MEDS: PANTOprazole 40 MG TAB PO SCH (09:16)
[2021-02-21] MEDS: ROSUVASTATIN CALCIUM 5 MG TAB PO SCH (09:16)
[2021-02-21 09:17] LABS: Albumin Level 3.9 gm/dl (3.4-5.0); BUN Creatinine Ratio 17.8 (10-20); Calcium 9.2 mg/dl (8.5-10.1); Creatinine Clr Calc Pharmacy 69.6 ml/min; Est GFR (African American) 98.6 ml/min; Est GFR (Non-African American) 85.1 ml/min; Magnesium 2.4 mg/dl (1.8-2.4)
[2021-02-21 09:21] LABS: Albumin Globulin Ratio 1.1 (0.9-2); Bilirubin,Total 0.4 mg/dl (0.2-1); Globulin 3.7 gm/dl (2.5-4.0); Total Protein 7.6 gm/dl (6.4-8.2)
--- NOTE | 2021-02-21 18:16 | Discharge Summary ---
Date of Service February 21, 2021 Admission HPI Per Admitting Provider The patient is a 70-year-old female with a past medical history including transaminitis, tachycardia, hypertension, atrial fibrillation, PFO, history of CVA, hyperlipidemia, GERD, facial pain, asthma and osteoporosis. She was most recently admitted to [facility] from 02/18-02/19 after presenting with upper sternal discomfort and chest tightness and laboratories showing transaminitis. Her work-up at that time included a CT of abdomen pelvis which showed hepatic steatosis, and a normal HIDA scan. She had been discharged to the home on February 19, but unfortunately after discharge, blood cultures 08/22 revealed gram- positive cocci, and she was asked to return to the hospital for admission and further work-up. Principal Diagnosis Bacillus spc in blood culture; likely a contaminant Discharge Exam Constitutional WD/WN, vitals as above Eyes EOM intact bilaterally; no conjunctival abnormality ENMT external ear and nose normal, oropharynx normal Neck trachea midline, no thyromegaly normal visual inspection Respiratory normal respiratory effort, lungs clear to auscultation no respiratory distress Cardiovascular RRR, no murmur, no edema Gastrointestinal (Abdomen) Inspection/Auscultation: abdomen normal to inspection; abdomen not distended Musculoskeletal no cyanosis or clubbing, extremities motor strength 5/5 Skin no rashes, warm and dry Neurologic moves all extremities and awake Psychiatric Orientation: alert, oriented to person and cooperative Discharge Data Allergies Allergy/AdvReac Type Severity Reaction Status Date / Time Cephalosporins Allergy Intermediate RED, ITCHY Verified 02/19/21 23:21 ciprofloxacin Allergy Unknown UNKNOWN Verified 02/19/21 23:21 vancomycin AdvReac Intermediate Red man Verified 02/21/21 07:46 syndrome Consultations 02/19/21 23:27 ED Decision to Admit Stat 02/20/21 09:32 Consult Otolaryngology (Head and Neck) Routine 02/20/21 14:30 Consult Infectious Diseases Routine Ordered Studies 02/19/21 23:15 CT mastoid w con Urgent Hospital Course (1) Bacteremia: Discussed with Martínez HENDERSON. Bacillus spc is actually a very common contaminant. Given it was in 07/28 blood cultures with lack of other systemic infectious symptoms, this is most likely a contaminant. - Seen by ENT on 02/20 with confirmation of sinusitis. Right maxillary sinus culture done by ENT. Can be followed by her normal ENT doctor, Dr. Mosley. Discharged on 7 more days of Augmentin. Advised to call for f/u appt. (2) Atrial fibrillation: Atrial fibrillation/PFO/hypertension Continue apixaban, lisinopril and HCTZ (3) Transaminitis: Transaminitis/hepatic steatosis- CT abdomen pelvis otherwise normal last admission. Transaminases had improved somewhat on February 19, but have worsened slightly again upon admission today. At last admission, she did have the following labs negative, COVID-19, Lyme disease, negative anaplasmosis smear and mono screen. She does have pending cytomegalovirus antibodies and Neo-[place] virus antibodies Do not see any value at this point to ordering an acute hepatitis profile (4) Hyperlipidemia: Continue rosuvastatin (5) GERD (gastroesophageal reflux disease): Continue pantoprazole (6) Asthma: No recent issues (7) Hypertension: See above Total Time Total Time Spent Total Time Spent (In Minutes): 35 Discharge Plan Discharge Items Patient Disposition: Home - Self-Care Reason For Visit: GRAM + BACTEREMIA Discharge Diagnosis: Bacillus bacteria in your blood culture, contaminant Sinus infection Activity: Resume your previous activity Non-emergency contact: Primary Care Provider and Surgeon Call non-emergency contact if: your symptoms worsen and your temperature is above 101 Follow-up/Referrals: José Peres, DO [Primary Care Provider] - Diet: Regular Addtl Attending Provider Instructions: Waldemar China, You were admitted to the hospital after having one of your blood cultures grow a bacteria. This is a potentially serious issue, so we had to ask you to come back to the hospital for IV antibiotics until we determined what kind of bacteria and whether we felt it was a truly bacteria in the bloodstream or not. We repeated the blood cultures, and they are negative at >24 hours. We watch all blood cultures for 5 days to be sure they do not grow bacteria, and will do the same for yours. Luckily, the [facility] Infectious Disease doctor felt that your single blood culture with the Bacillus species of bacteria was a contaminant. Despite our best practices, we do occasionally get episodes where bacteria from the skin make it into the blood culture and grow there, causing a false positive. This appears to be the case for you which (while very frustrating for all of us) is good news overall because it means you never had bacteria escape into your blood. You were seen by our [facility] ENT, Dr. John Leach, who agreed that you have sinusitis and recommended a course of antibiotics. These can be oral, so there is no need for a continued IV. Dr. Leach recommended you see Dr. Mosley in [place] sooner than your planned several month follow-up to make sure your sinus infection is clearing up. Please call Dr. Peres or Dr. Mosley if you have more fevers, worsening sinus or ear pain, or other concerning symptoms. While on the antibiotic, eat plenty of yogurt (with live, active cultures) to try to keep your GI tract healthy. Pending Studies at Discharge: Yes Studies:: Monitor blood cultures for 5 days total Stand-Alone Forms: My [facility], Smoking Cessation Medications and DC Order Prescriptions: New amoxicillin-pot clavulanate [Augmentin] 875-125 mg tablet 1 tab PO BID Qty: 13 RF: 0 Continued Eliquis 5 mg tablet 5 mg PO BID Qty: 180 RF: 3 fluticasone propionate [Flovent Diskus] 100 mcg/actuation blister with device See Rx Instructions .ROUTE .COMPLEX Qty: 60 RF: 11 lisinopril 40 mg tablet 20 mg PO DAILY Qty: 45 RF: 3 albuterol sulfate [Ventolin HFA] 90 mcg/actuation HFA aerosol inhaler 2 puff INH QID PRN (Reason: shortness of breath or wheezing) RF: 0 rosuvastatin [Crestor] 5 mg tablet 5 mg PO DAILY Qty: 90 RF: 3 hydrochlorothiazide 12.5 mg tablet 12.5 mg PO QAM Qty: 90 RF: 3 omeprazole 40 mg capsule,delayed release(DR/EC) 40 mg PO DAILY RF: 0 Women's One Daily 18 mg iron-400 mcg-500 mg Ca Tablet 1 tab PO DAILY RF: 0 calcium carbonate-vitamin D3 [Calcium 600 + D(3)] 600 mg(1,500mg) -400 unit Tablet 1 tab PO DAILY RF: 0 Discharge Orders: Discharge Order (Routine); Ordered 02/21/21 Ordered By: Claudy Orozco Admission Data Admit Date/Time: 02/20/21 18:24 Attending Provider: Claudy Orozco Admit Provider: John Jacob Primary Care Provider: José Peres Other Providers: Claudy Orozco ; John Leach ; Say Bess ; Maddy Rangel ; Behzad Jarrett I. ; Shon Casiano II ; Yisel Tobar ; Farhad Villeda Other Interventions: Discharge Summary Assessment (RN) Last Done: 02/21/21 11:06 Coding Level of Care Code D/C DAY MANAGEMENT >30 MINS Diagnoses Bacteremia R78.81 Atrial fibrillation I48.91 Transaminitis R74.01 Hyperlipidemia E78.5 GERD (gastroesophageal reflux disease) K21.9 Asthma J45.909 Hypertension I10
--- NOTE | 2021-02-22 05:57 | Electrocardiogram Report ---
Test Reason : Blood Pressure : / mmHG Vent. Rate : 079 BPM Atrial Rate : 079 BPM P-R Int : 164 ms QRS Dur : 078 ms QT Int : 388 ms P-R-T Axes : -01 030 038 degrees QTc Int : 444 ms Normal sinus rhythm Normal ECG When compared with ECG of 18-FEB-2021 19:30, No significant change was found Confirmed by Chandan Rojas ([id number]) on 02/22/2021 5:57:17 AM Referred By: REFERRED SELF Confirmed By:Chandan Rojas
== END 2021-02-21 11:29 | disposition home or self-care (01) | DRG 153 ==
LOC: ED 20:09 → EDINP 20:09 → SUATTDRO 02-20 00:38 → EDINP 02-20 02:41 → 2W 02-20 17:55